=== PATIENT | female | born 1985 | race Caucasian/White ===

== ENCOUNTER 2020-10-04 15:56 | Inpatient (IN) ==
--- NOTE | 2020-10-04 19:20 | Emergency Department Note ---
History of Present Illness General Chief Complaint: Flank Pain Stated Complaint: SEVERE L SIDE&LEG PAIN, POSSIBLE INFECTION Time Seen by Provider: 10/04/20 19:17 Source: patient Mode of arrival: ambulatory Limitations: no limitations History of Present Illness Provider Complaint: flank pain Onset (ago): 1 day(s) Pain Consistency: constant Location: L flank Radiation: other (Left leg) Migration to: no migration Severity: moderate Maximum Pain Intensity: 7 Quality: + sharp Relieved By: + nothing Exacerbated By: + movement Context: no foreign travel, no possible food poisoning, no sick contacts, no recent antibiotic use, no recent surgery/procedure, no recent injury or no history of similar episodes Associated Symptoms: + nausea; no vomiting, no diarrhea, no fever, no constipation, no dysuria, no hematochezia, no hematuria and no weakness Treatments prior to arrival: none Home Medications Medication Instructions Recorded Confirmed Type vit no.95-ferrous 1 tab PO DAILY 05/02/20 10/04/20 History fumarate 28 mg-folic acid 800 mcg tablet () Allergies Allergy/AdvReac Type Severity Reaction Status Date / Time papaya Allergy Intermediate RASH FROM Verified 10/04/20 19:54 PAPAYA FACIAL MASK [place] And Derivatives Allergy Mild SEE COMMENT Verified 10/04/20 19:54 Past Med/Surg History Medical History Asthma Fibromyalgia Surgical History No pertinent past surgical history Family History Other Diabetes Social History Smoking Status: Never smoker Preferred Language: Ethiopian Feels Safe at Home: Yes Review of Systems See HPI for pertinent positives & negatives. and A total of 10 systems reviewed and were otherwise negative Physical Exam Vital Signs: Vital Signs - 24 hr 10/04/20 16:29 10/04/20 19:41 10/04/20 19:42 Temperature 36.8 C Temperature Source Temporal Artery Sc an Pulse Rate 85 Pulse Rate [Apical ] 85 Pulse Rhythm Regular Pulse Rhythm [Apic al] Pulse Strength Normal Pulse Strength [Ap ical] Respiratory Rate 18 18 Respiratory Effort / Characteristics Non-Labored Sponta neous Respiratory Depth Normal Blood Pressure 144/92 H Blood Pressure [Le ft Arm] 117/67 Blood Pressure Mary n 109 Blood Pressure Mary n [Left Arm] 83 Blood Pressure Pos ition [Left Arm] Pulse Oximetry 98 98 98 Oxygen Delivery Me thod Room Air Room Air Room Air Sepsis Recent Feve r Within 48 Hours No Sepsis New/Unexpla ined Change in Men merlin Status No Sepsis Action Take n by Nursing No Action Required 10/04/20 21:00 10/04/20 22:22 10/05/20 00:02 Temperature Temperature Source Pulse Rate Pulse Rate [Apical ] 98 H 94 H 105 H Pulse Rhythm Pulse Rhythm [Apic al] Regular Pulse Strength Pulse Strength [Ap ical] Normal Respiratory Rate 18 18 18 Respiratory Effort / Characteristics Non-Labored Non-Labored Sponta neous Respiratory Depth Normal Normal Blood Pressure Blood Pressure [Le ft Arm] 132/75 135/84 128/72 Blood Pressure Mary n Blood Pressure Mary n [Left Arm] 94 101 90 Blood Pressure Pos ition [Left Arm] Lying Pulse Oximetry 97 100 96 Oxygen Delivery Me thod Room Air Room Air Room Air Sepsis Recent Feve r Within 48 Hours Sepsis New/Unexpla ined Change in Men merlin Status Sepsis Action Take n by Nursing Physical Exam: GENERAL: Wearing glasses and a mask NAD, non-toxic. EYE EXAM: Normal conjunctiva. PERRL, no anisocoria and EOM's grossly intact w/o pain. NECK: Supple, no nuchal rigidity, no adenopathy, non-tender. No signs of meningismus. LUNGS: Clear to auscultation. Normal chest wall mechanics. HEART: NSR, no MRG. ABDOMEN: Abdomen soft, gravid abdomen approximate 5 cm above the umbilicus. Normo-active bowel sounds, no masses, no rebound or guarding. BACK: Left-sided CVA TTP. SKIN: No rashes and no bruising. UPPER EXTREMITIES: Upper extremities are grossly normal. LOWER EXTREMITIES: Mild pain to the left ankle without any obvious deformity or swelling. Compartments are soft. NEURO EXAM: A&O x3, cranial nerves II-XII grossly intact, normal speech, moves all 4 extremities on command w/o issue. Course Course Cardiac monitoring: An order was placed for continuous cardiac monitoring. The monitor shows a rate of 85 with sinus rhythm. Administered Medications Gentamicin Sulfate 520 mg/ (Dextrose) 113 mls @ 100 mls/hr IV Q24H [facility]; Protocol Stop: 10/07/20 00:00 Last Admin: 10/04/20 23:59 Dose: 100 mls/hr Documented by: [id number] Discontinued Medications Acetaminophen (Acetaminophen 500 Mg Tab) 1,000 mg PO NOW STA Stop: 10/04/20 19:30 Last Admin: 10/04/20 19:43 Dose: 1,000 mg Documented by: [id number] Sodium Chloride (Nss 1000ml) 1,000 mls @ 999 mls/hr IV .Q1H1M ONE Stop: 10/04/20 20:29 Last Infusion: 10/04/20 20:43 Dose: 0 mls/hr Documented by: [id number] Admin: 10/04/20 19:43 Dose: 999 mls/hr Documented by: [id number] Ceftriaxone Sodium (Rocephin) 2,000 mg in 70 mls @ 140 mls/hr IV NOW STA Stop: 10/04/20 21:07 Last Infusion: 10/04/20 21:32 Dose: 0 mls/hr Documented by: [id number] Admin: 10/04/20 21:05 Dose: 140 mls/hr Documented by: [id number] Morphine Sulfate (Morphine Sulfate 4 Mg/Ml 1 Ml Carp\Vial) 4 mg IV NOW STA Stop: 10/04/20 22:01 Last Admin: 10/04/20 22:21 Dose: 4 mg Documented by: [id number] Medical Decision Making Differential Diagnosis Renal colic, UTI, appendicitis, diverticulitis, mesenteric ischemia, aortic pathology, infections, inflammatory bowel disease, PUD, biliary pathology, as well as other pathologies. Medical Records Attestation: I reviewed the patient's medical records. Home Medications Current Medication List: was personally reviewed by me Laboratory Data Attestation: I reviewed the patient's lab results. Result diagrams: 10/04/20 19:20 10/04/20 19:20 Lab Results 10/04/20 10/04/20 10/04/20 Range/Units 19:20 19:20 19:20 WBC 19.76 H (4.8-10.8) K/uL RBC 4.31 (4.2-5.4) M/uL Hgb 13.8 (12.0-16.0) g/dL Hct 41.2 (37-47) % MCV 95.6 (80-100) fL MCH 32.0 (25-34) pg MCHC 33.5 (32-36) g/dL RDW Std Deviation 46.3 (36.4-46.3) fL RDW Coeff of Yaneth 13.3 (11.5-14.5) % Plt Count 268 (130-400) K/uL MPV 10.2 (7.4-10.4) fL Immature Gran % (Auto) 0.9 % Neut % (Auto) 89.8 % Lymph % (Auto) 5.2 % [place] % (Auto) 4.0 % Eos % (Auto) 0.0 % Baso % (Auto) 0.1 % Neut # (Auto) 17.75 H (1.4-6.5) K/uL Lymph # (Auto) 1.03 L (1.2-3.4) K/uL [place] # (Auto) 0.80 H (0.11-0.59) K/uL Eos # (Auto) 0.00 (0-0.5) K/uL Baso # (Auto) 0.01 (0-0.2) K/uL Immature Gran # (Auto) 0.17 H (0.00-0.02) K/uL Sodium 137 (136-145) mmol/L Potassium 4.0 (3.5-5.1) mmol/L Chloride 107 (98-107) mmol/L Carbon Dioxide 23 (21-32) mmol/L Anion Gap 8.0 (3-11) BUN 10 (7-18) mg/dl Creatinine 0.85 (0.6-1.2) mg/dl Est Cr Clr Drug Dosing 107.1 ml/min Est GFR ( Amer) 102.9 ml/min Est GFR (Non-Af Amer) 88.8 ml/min BUN/Creatinine Ratio 11.2 (10-20) Glucose 111 H (70-99) mg/dl Calcium 8.7 (8.5-10.1) mg/dl Total Bilirubin 0.3 (0.2-1) mg/dl AST 20 (15-37) U/L ALT 30 (12-78) U/L Alkaline Phosphatase 84 (45-117) U/L Troponin I < 0.015 (0-0.045) ng/ml Total Protein 7.0 (6.4-8.2) gm/dl Albumin 2.8 L (3.4-5.0) gm/dl Globulin 4.2 H (2.5-4.0) gm/dl Albumin/Globulin Ratio 0.7 L (0.9-2) Lipase 151 (73-393) U/L Urine Color Yellow Urine Appearance Cloudy A (Clear) Urine pH 6.0 (4.5-7.5) Ur Specific [place] 1.024 (1.000-1.030) Urine Protein 1+ H (Negative) Urine Glucose (UA) Trace H (Negative) Urine Ketones 3+ H (Negative) Urine Blood Trace H (Negative) Urine Nitrite Negative (Negative) Urine Bilirubin Negative (Negative) Urine Urobilinogen Negative (Negative) Ur Leukocyte Esterase 2+ H (Negative) Urine WBC (Auto) >30 H (0-5) /hpf Urine RBC (Auto) 5-10 H (0-4) /hpf U Hyaline Cast (Auto) 1-5 (0-5) /lpf U Epithel Cells (Auto) >30 H (0-5) /lpf Urine Bacteria (Auto) 2+ H (Negative) COVID-19 Eval Order SARS-CoV-2 (PCR) (Negative) 10/04/20 10/04/20 Range/Units 22:17 22:17 WBC (4.8-10.8) K/uL RBC (4.2-5.4) M/uL Hgb (12.0-16.0) g/dL Hct (37-47) % MCV (80-100) fL MCH (25-34) pg MCHC (32-36) g/dL RDW Std Deviation (36.4-46.3) fL RDW Coeff of Yaneth (11.5-14.5) % Plt Count (130-400) K/uL MPV (7.4-10.4) fL Immature Gran % (Auto) % Neut % (Auto) % Lymph % (Auto) % [place] % (Auto) % Eos % (Auto) % Baso % (Auto) % Neut # (Auto) (1.4-6.5) K/uL Lymph # (Auto) (1.2-3.4) K/uL [place] # (Auto) (0.11-0.59) K/uL Eos # (Auto) (0-0.5) K/uL Baso # (Auto) (0-0.2) K/uL Immature Gran # (Auto) (0.00-0.02) K/uL Sodium (136-145) mmol/L Potassium (3.5-5.1) mmol/L Chloride (98-107) mmol/L Carbon Dioxide (21-32) mmol/L Anion Gap (3-11) BUN (7-18) mg/dl Creatinine (0.6-1.2) mg/dl Est Cr Clr Drug Dosing ml/min Est GFR ( Amer) ml/min Est GFR (Non-Af Amer) ml/min BUN/Creatinine Ratio (10-20) Glucose (70-99) mg/dl Calcium (8.5-10.1) mg/dl Total Bilirubin (0.2-1) mg/dl AST (15-37) U/L ALT (12-78) U/L Alkaline Phosphatase (45-117) U/L Troponin I (0-0.045) ng/ml Total Protein (6.4-8.2) gm/dl Albumin (3.4-5.0) gm/dl Globulin (2.5-4.0) gm/dl Albumin/Globulin Ratio (0.9-2) Lipase (73-393) U/L Urine Color Urine Appearance (Clear) Urine pH (4.5-7.5) Ur Specific [place] (1.000-1.030) Urine Protein (Negative) Urine Glucose (UA) (Negative) Urine Ketones (Negative) Urine Blood (Negative) Urine Nitrite (Negative) Urine Bilirubin (Negative) Urine Urobilinogen (Negative) Ur Leukocyte Esterase (Negative) Urine WBC (Auto) (0-5) /hpf Urine RBC (Auto) (0-4) /hpf U Hyaline Cast (Auto) (0-5) /lpf U Epithel Cells (Auto) (0-5) /lpf Urine Bacteria (Auto) (Negative) COVID-19 Eval Order Covid19 at [facility] SARS-CoV-2 (PCR) NEGATIVE (Negative) Imaging Data Radiologist's Impression: Ankle X-Ray 10/04/20 19:29 XR ankle LT min 3V routine HISTORY: 35 years-old Female ankle pain, fall weeks ago acute left ankle pain status post fall COMPARISON: Left ankle radiographs 07/25/2010 TECHNIQUE: 3 views of the left ankle FINDINGS: Moderate circumferential soft tissue prominence. No acute fracture, dislocation or osteochondral defect. Small plantar enthesophyte of the calcaneus. IMPRESSION: Soft tissue swelling without acute fracture. ACT 112: Negative or not required by law. The above report was generated using voice recognition software. It may contain grammatical, syntax or spelling errors. Electronically signed by: Evens Busch M.D. 10/04/2020 7:40 PM Obstetrics Ultrasound 10/04/20 19:29 US OB limited HISTORY: 35 years-old Female flank/ab pain acute left flank pain with COMPARISON: Renal ultrasound of same day TECHNIQUE: Multiple real-time sonographic images of the deep pelvic structures were obtained transabdominally assessing grayscale appearance, color flow and M-mode analysis FINDINGS: Cervix is suboptimally visualized. No living intrauterine gestation is noted with heart rate measured at 177 bpm. Fetus is in breech positioning. The femur length is measured at 5.14 cm correlating with estimated gestational age of 27 weeks 3 days. Nonspecific mildly heterogeneous appearance of the placenta. IMPRESSION: Single living intrauterine gestation with estimated gestational age of 27 weeks and 3 days. ACT 112: Negative or not required by law. The above report was generated using voice recognition software. It may contain grammatical, syntax or spelling errors. Electronically signed by: Evens Busch M.D. 10/04/2020 8:40 PM Renal Ultrasound 10/04/20 19:29 US renal/blad retro comp HISTORY: 35 years-old Female flank pain . Acute bilateral flank pain with COMPARISON: Pelvic ultrasound of same day TECHNIQUE: Multiple real-time sonographic images of the kidneys and urinary bladder were obtained assessing grayscale appearance and color flow FINDINGS: The right kidney measures 12.5 cm in length and demonstrates no renal calculi or hydronephrosis. Left kidney measures 12.7 cm in length and demonstrates no renal calculi. Mild left-sided hydroureteronephrosis with questioned urothelial thickening. Asymmetric left perinephric fluid on the left is noted. Decompressed urinary bladder. IMPRESSION: 1. Mild asymmetric left-sided hydroureteronephrosis with perinephric stranding. Findings should be correlated with urinalysis. 2. Unremarkable sonographic appearance of the right kidney. 3. Decompressed urinary bladder. ACT 112: Negative or not required by law. The above report was generated using voice recognition software. It may contain grammatical, syntax or spelling errors. Electronically signed by: Evens Busch M.D. 10/04/2020 8:33 PM MDM Narrative Patient was seen due to concern for flank pain. The patient is 29 weeks . Patient did have x-ray of the ankle in addition to the ultrasounds. Patient x- rays negative. Single IUP 27 weeks 3 days. Likely hydroureteronephrosis and perinephric stranding. I believe the patient likely has a pyelonephritis. I did speak with the on-call [employer] physician Dr. Dick and the patient was admitted to the [employer] service. Impression & Plan Pyelonephritis, Flank Pain Discharge Plan Visit Data Chief Complaint: Flank Pain Stated Complaint: SEVERE L SIDE&LEG PAIN, POSSIBLE INFECTION ED Provider: Iain Barone Discharge Problem: Pyelonephritis, Flank Pain Patient Disposition: Admitted As Inpatient Discharge Instructions Interventions: ED Discharge Assessment Last Done: 10/05/20 00:25 Forms Stand Alone Forms: [facility] Prescriptions Prescriptions: No Action PNV cmb#95-ferrous fumarate-FA [] 28 mg iron- 800 mcg Tablet 1 tab PO DAILY RF: 0 Referrals Referrals: Jordyn Marmolejo DO [Primary Care Provider] -
[2020-10-04] MEDS ORDERED: SODIUM CHLORIDE 0.9% 1000ML 1,000 ML IV ONE (19:29)
[2020-10-04] MEDS ORDERED: ACETAMINOPHEN 500 MG TAB PO STA (19:29)
--- NOTE | 2020-10-04 19:42 | XRay Report ---
XR ankle LT min 3V routine HISTORY: 35 years-old Female ankle pain, fall weeks ago acute left ankle pain status post fall COMPARISON: Left ankle radiographs 07/25/2010 TECHNIQUE: 3 views of the left ankle FINDINGS: Moderate circumferential soft tissue prominence. No acute fracture, dislocation or osteochondral defe ct. Small plantar enthesophyte of the calcaneus. IMPRESSION: Soft tissue swelling without acute fracture. ACT 112: Negative or not required by law. The above report was generated using voice recognition software. It may contain grammatical, syntax o r spelling errors. Electronically signed by: Evens Busch M.D. 10/04/2020 7:40 PM
[2020-10-04 19:51] LABS: Basophils # (auto) 0.01 K/uL (0-0.2); Basophils % (auto) 0.1 %; Hematocrit (blood only) 41.2 % (37-47); Hemoglobin 13.8 g/dL (12.0-16.0); Immature Granulocytes # (auto) 0.17 K/uL (0.00-0.02); Immature Granulocytes % (auto) 0.9 %; Lymphocytes # (auto) 1.03 K/uL (1.2-3.4); Lymphocytes % (auto) 5.2 %; Mean Corpuscular Hgb Conc 33.5 g/dL (32-36); Mean Corpuscular Volume 95.6 fL (80-100); Mean Platelet Volume 10.2 fL (7.4-10.4); Neutrophils # (auto) 17.75 K/uL (1.4-6.5); Neutrophils % (auto) 89.8 %; Platelet Count 268 K/uL (130-400); RDW Coefficient of Variation 13.3 % (11.5-14.5); RDW Standard Deviation 46.3 fL (36.4-46.3); Red Blood Count 4.31 M/uL (4.2-5.4); White Blood Count 19.76 K/uL (4.8-10.8)
[2020-10-04 19:55] LABS: Alanine Aminotransferase 30 U/L (12-78); Albumin Level 2.8 gm/dl (3.4-5.0); Aspartate Aminotransferase 20 U/L (15-37); BUN Creatinine Ratio 11.2 (10-20); Blood Urea Nitrogen 10 mg/dl (7-18); Calcium 8.7 mg/dl (8.5-10.1); Carbon Dioxide 23 mmol/L (21-32); Chloride 107 mmol/L (98-107); Creatinine Clr Calc Pharmacy 107.1 ml/min; Est GFR (African American) 102.9 ml/min; Est GFR (Non-African American) 88.8 ml/min; Glucose 111 mg/dl (70-99); Lipase 151 U/L (73-393); Sodium 137 mmol/L (136-145)
[2020-10-04 20:00] LABS: Albumin Globulin Ratio 0.7 (0.9-2); Alkaline Phosphatase 84 U/L (45-117); Bilirubin,Total 0.3 mg/dl (0.2-1); Globulin 4.2 gm/dl (2.5-4.0); Troponin I < 0.015 ng/ml (0-0.045)
[2020-10-04 20:19] LABS: Appearance Urine Cloudy (Clear); Bacteria Urine Automated 2+ (Negative); Bilirubin Urine Negative (Negative); Blood Urine Trace (Negative); Color Urine Yellow; Epithelial Cell Urine Auto >30 /lpf (0-5); Glucose Urine UA Trace (Negative); Ketones Urine 3+ (Negative); Leukocyte Esterase Urine 2+ (Negative); Nitrite Urine Negative (Negative); Protein Urine 1+ (Negative); Specific Gravity Urine 1.024 (1.000-1.030); Urobilinogen Urine Negative (Negative); WBC Urine Automated >30 /hpf (0-5)
--- NOTE | 2020-10-04 20:34 | Ultrasound Report ---
US renal/blad retro comp HISTORY: 35 years-old Female flank pain . Acute bilateral flank pain with COMPARISON: Pelvic ultrasound of same day TECHNIQUE: Multiple real-time sonographic images of the kidneys and urinary bladder were obtained ass essing grayscale appearance and color flow FINDINGS: The right kidney measures 12.5 cm in length and demonstrates no renal calculi or hydronephrosis. Left kidney measures 12.7 cm in length and demonstrates no renal calculi. Mild left-sided hydroureter onephrosis with questioned urothelial thickening. Asymmetric left perinephric fluid on the left is no daphne. Decompressed urinary bladder. IMPRESSION: 1. Mild asymmetric left-sided hydroureteronephrosis with perinephric stranding. Findings should be co rrelated with urinalysis. 2. Unremarkable sonographic appearance of the right kidney. 3. Decompressed urinary bladder. ACT 112: Negative or not required by law. The above report was generated using voice recognition software. It may contain grammatical, syntax o r spelling errors. Electronically signed by: Evens Busch M.D. 10/04/2020 8:33 PM
[2020-10-04] MEDS ORDERED: cefTRIAXone SODIUM 2,000 MG/70 ML BAG IV STA (20:38)
--- NOTE | 2020-10-04 20:41 | Ultrasound Report ---
US OB limited HISTORY: 35 years-old Female flank/ab pain acute left flank pain with COMPARISON: Renal ultrasound of same day TECHNIQUE: Multiple real-time sonographic images of the deep pelvic structures were obtained transabd ominally assessing grayscale appearance, color flow and M-mode analysis FINDINGS: Cervix is suboptimally visualized. No living intrauterine gestation is noted with heart rate me asured at 177 bpm. Fetus is in breech positioning. The femur length is measured at 5.14 cm correlatin g with estimated gestational age of 27 weeks 3 days. Nonspecific mildly heterogeneous appearance of t he placenta. IMPRESSION: Single living intrauterine gestation with estimated gestational age of 27 weeks and 3 day s. ACT 112: Negative or not required by law. The above report was generated using voice recognition software. It may contain grammatical, syntax o r spelling errors. Electronically signed by: Evens Busch M.D. 10/04/2020 8:40 PM
[2020-10-04] MEDS ORDERED: MoRPHine SULFATE 4 MG/ML 1 ML CARP\\VIAL IV STA (22:00)
[2020-10-04] MEDS ORDERED: GENTAMICIN CONSULT ACTIVE PRN (22:18)
[2020-10-04] MEDS ORDERED: HYDROmorphone INJ 1 MG/ML SYRINGE IV PRN (22:24)
[2020-10-04] MEDS ORDERED: oxyCODONE/ACETAMINOPHEN 5mg/325mg TAB PO PRN (22:24)
[2020-10-04] MEDS: DEXTROSE 5% IV SCH (23:59)
[2020-10-04] MEDS: GENTAMICIN SULFATE IV SCH (23:59)
[2020-10-05] MEDS: LACTATED RINGER'S 1,000 ML IV SCH (01:45)
[2020-10-05] MEDS: AMPICILLIN 2,000 MG in 0.9 % SODIUM CHLORIDE 100 ML IV SCH ×4 (01:45→20:15)
[2020-10-05] MEDS: ONDANSETRON INJ 2 MG/ML 2 ML VIAL IV PRN (02:01)
[2020-10-05] MEDS ORDERED: ZOLPIDEM TARTRATE 5 MG TAB PO PRN (02:39)
[2020-10-05] MEDS: ACETAMINOPHEN 325 MG TAB PO PRN ×4 (02:45→23:59)
[2020-10-05 06:29] LABS: Basophils # (auto) 0.01 K/uL (0-0.2); Basophils % (auto) 0.1 %; Hematocrit (blood only) 34.8 % (37-47); Hemoglobin 11.6 g/dL (12.0-16.0); Immature Granulocytes % (auto) 0.5 %; Lymphocytes # (auto) 1.33 K/uL (1.2-3.4); Lymphocytes % (auto) 7.3 %; Mean Corpuscular Hgb Conc 33.3 g/dL (32-36); Mean Corpuscular Volume 96.1 fL (80-100); Monocytes # (auto) 1.09 K/uL (0.11-0.59); Neutrophils # (auto) 15.75 K/uL (1.4-6.5); Neutrophils % (auto) 86.1 %; Platelet Count 231 K/uL (130-400); RDW Coefficient of Variation 13.5 % (11.5-14.5); RDW Standard Deviation 47.1 fL (36.4-46.3); Red Blood Count 3.62 M/uL (4.2-5.4); White Blood Count 18.28 K/uL (4.8-10.8)
[2020-10-05 06:58] LABS: Albumin Level 2.2 gm/dl (3.4-5.0); BUN Creatinine Ratio 7.9 (10-20); Calcium 7.5 mg/dl (8.5-10.1); Creatinine Clr Calc Pharmacy 92.3 ml/min; Est GFR (African American) 86.6 ml/min; Est GFR (Non-African American) 74.7 ml/min; Potassium 3.6 mmol/L (3.5-5.1)
[2020-10-05 07:04] LABS: Albumin Globulin Ratio 0.7 (0.9-2); Bilirubin,Total 0.2 mg/dl (0.2-1); Globulin 3.3 gm/dl (2.5-4.0); Total Protein 5.5 gm/dl (6.4-8.2)
[2020-10-05] MEDS: PRENATAL VITAMIN 1 TAB PO SCH (09:00)
[2020-10-05] MEDS ORDERED: NON-FORMULARY MEDICATION (Pnv Cmb#95-Ferrous Fumarate-Fa [Prenatal] 28 mg iron- 800 mcg Ta PO SCH (09:00)
--- NOTE | 2020-10-05 10:20 | Progress Note ---
Date of Service October 05, 2020 Assessment & Plan Admission and Anticipated Discharge Date Admission Date: October 04, 2020 Subjective still having back pain feeling baby move tolerating diet Review of Systems Review of Systems: All systems reviewed & are unremarkable except as noted in HPI & below Physical Exam Constitutional: WD/WN, vitals as above comfortable Gastrointestinal (Abdomen): normal bowel sounds, soft, nontender, no hepatosplenomegaly Musculoskeletal: minimal pain l flank +CVA tenderness Neurologic: patellar DTR's 2+ bilat, sensation intact Genitourinary: FHT Cat 1 Results & Data ([facility]) Vital Signs (Past 12 Hours) Vital Signs Temp Pulse Resp BP Pulse Ox 10/05/20 08:15 36.7 C 98 H 16 113/69 96 10/05/20 02:15 37.3 C 105 H 16 104/65 95 10/05/20 00:02 105 H 18 128/72 96 10/04/20 22:22 94 H 18 135/84 100 Laboratory Results Laboratory Results - last 72 hr 10/04/20 10/04/20 10/04/20 19:20 19:20 19:20 WBC 19.76 H RBC 4.31 Hgb 13.8 Hct 41.2 MCV 95.6 MCH 32.0 MCHC 33.5 RDW Std Deviation 46.3 RDW Coeff of Yaneth 13.3 Plt Count 268 MPV 10.2 Immature Gran % (Auto) 0.9 Neut % (Auto) 89.8 Lymph % (Auto) 5.2 [place] % (Auto) 4.0 Eos % (Auto) 0.0 Baso % (Auto) 0.1 Neut # (Auto) 17.75 H Lymph # (Auto) 1.03 L [place] # (Auto) 0.80 H Eos # (Auto) 0.00 Baso # (Auto) 0.01 Immature Gran # (Auto) 0.17 H Sodium 137 Potassium 4.0 Chloride 107 Carbon Dioxide 23 Anion Gap 8.0 BUN 10 Creatinine 0.85 Est Cr Clr Drug Dosing 107.1 Est GFR ( Amer) 102.9 Est GFR (Non-Af Amer) 88.8 BUN/Creatinine Ratio 11.2 Glucose 111 H Calcium 8.7 Total Bilirubin 0.3 AST 20 ALT 30 Alkaline Phosphatase 84 Troponin I < 0.015 Total Protein 7.0 Albumin 2.8 L Globulin 4.2 H Albumin/Globulin Ratio 0.7 L Lipase 151 Urine Color Yellow Urine Appearance Cloudy A Urine pH 6.0 Ur Specific [place] 1.024 Urine Protein 1+ H Urine Glucose (UA) Trace H Urine Ketones 3+ H Urine Blood Trace H Urine Nitrite Negative Urine Bilirubin Negative Urine Urobilinogen Negative Ur Leukocyte Esterase 2+ H Urine WBC (Auto) >30 H Urine RBC (Auto) 5-10 H U Hyaline Cast (Auto) 1-5 U Epithel Cells (Auto) >30 H Urine Bacteria (Auto) 2+ H COVID-19 Eval Order SARS-CoV-2 (PCR) 10/04/20 10/04/20 10/05/20 22:17 22:17 06:16 WBC 18.28 H RBC 3.62 L Hgb 11.6 L Hct 34.8 L MCV 96.1 MCH 32.0 MCHC 33.3 RDW Std Deviation 47.1 H RDW Coeff of Yaneth 13.5 Plt Count 231 MPV 10.0 Immature Gran % (Auto) 0.5 Neut % (Auto) 86.1 Lymph % (Auto) 7.3 [place] % (Auto) 6.0 Eos % (Auto) 0.0 Baso % (Auto) 0.1 Neut # (Auto) 15.75 H Lymph # (Auto) 1.33 [place] # (Auto) 1.09 H Eos # (Auto) 0.00 Baso # (Auto) 0.01 Immature Gran # (Auto) 0.10 H Sodium Potassium Chloride Carbon Dioxide Anion Gap BUN Creatinine Est Cr Clr Drug Dosing Est GFR ( Amer) Est GFR (Non-Af Amer) BUN/Creatinine Ratio Glucose Calcium Total Bilirubin AST ALT Alkaline Phosphatase Troponin I Total Protein Albumin Globulin Albumin/Globulin Ratio Lipase Urine Color Urine Appearance Urine pH Ur Specific [place] Urine Protein Urine Glucose (UA) Urine Ketones Urine Blood Urine Nitrite Urine Bilirubin Urine Urobilinogen Ur Leukocyte Esterase Urine WBC (Auto) Urine RBC (Auto) U Hyaline Cast (Auto) U Epithel Cells (Auto) Urine Bacteria (Auto) COVID-19 Eval Order Covid19 at [facility] SARS-CoV-2 (PCR) NEGATIVE 10/05/20 06:16 WBC RBC Hgb Hct MCV MCH MCHC RDW Std Deviation RDW Coeff of Yaneth Plt Count MPV Immature Gran % (Auto) Neut % (Auto) Lymph % (Auto) [place] % (Auto) Eos % (Auto) Baso % (Auto) Neut # (Auto) Lymph # (Auto) [place] # (Auto) Eos # (Auto) Baso # (Auto) Immature Gran # (Auto) Sodium 137 Potassium 3.6 Chloride 107 Carbon Dioxide 22 Anion Gap 8.0 BUN 8 Creatinine 0.98 Est Cr Clr Drug Dosing 92.3 Est GFR ( Amer) 86.6 Est GFR (Non-Af Amer) 74.7 BUN/Creatinine Ratio 7.9 L Glucose 189 H Calcium 7.5 L Total Bilirubin 0.2 AST 18 ALT 22 Alkaline Phosphatase 70 Troponin I Total Protein 5.5 L D Albumin 2.2 L Globulin 3.3 Albumin/Globulin Ratio 0.7 L Lipase Urine Color Urine Appearance Urine pH Ur Specific [place] Urine Protein Urine Glucose (UA) Urine Ketones Urine Blood Urine Nitrite Urine Bilirubin Urine Urobilinogen Ur Leukocyte Esterase Urine WBC (Auto) Urine RBC (Auto) U Hyaline Cast (Auto) U Epithel Cells (Auto) Urine Bacteria (Auto) COVID-19 Eval Order SARS-CoV-2 (PCR)
[2020-10-05] MEDS: cefTRIAXone SODIUM 2,000 MG in DEXTROSE 5% 50 ML IV SCH (21:28)
[2020-10-05] MEDS: DEXTROSE 5% IV SCH (23:59)
[2020-10-05] MEDS: GENTAMICIN SULFATE IV SCH (23:59)
[2020-10-06] MEDS ORDERED: DOCUSATE SODIUM 100 MG CAP PO ONE (00:16)
[2020-10-06] MEDS: AMPICILLIN 2,000 MG in 0.9 % SODIUM CHLORIDE 100 ML IV SCH ×4 (01:54→19:38)
[2020-10-06 06:30] LABS: Basophils # (auto) 0.01 K/uL (0-0.2); Basophils % (auto) 0.1 %; Eosinophils # (auto) 0.01 K/uL (0-0.5); Eosinophils % (auto) 0.1 %; Hematocrit (blood only) 36.3 % (37-47); Hemoglobin 11.8 g/dL (12.0-16.0); Immature Granulocytes % (auto) 0.5 %; Lymphocytes # (auto) 1.43 K/uL (1.2-3.4); Lymphocytes % (auto) 7.6 %; Mean Corpuscular Hemoglobin 31.3 pg (25-34); Mean Corpuscular Hgb Conc 32.5 g/dL (32-36); Mean Corpuscular Volume 96.3 fL (80-100); Mean Platelet Volume 10.1 fL (7.4-10.4); Monocytes # (auto) 1.75 K/uL (0.11-0.59); Monocytes % (auto) 9.3 %; Neutrophils # (auto) 15.42 K/uL (1.4-6.5); Neutrophils % (auto) 82.4 %; Platelet Count 227 K/uL (130-400); RDW Coefficient of Variation 13.9 % (11.5-14.5); RDW Standard Deviation 49.3 fL (36.4-46.3); Red Blood Count 3.77 M/uL (4.2-5.4); White Blood Count 18.72 K/uL (4.8-10.8)
[2020-10-06 07:00] LABS: RBC Morphology Unremarkable
[2020-10-06] MEDS: PRENATAL VITAMIN 1 TAB PO SCH (07:38)
[2020-10-06] MEDS: ACETAMINOPHEN 325 MG TAB PO PRN ×3 (07:39→19:37)
[2020-10-06] MEDS ORDERED: MAGNESIUM HYDROXIDE SUSP 30 ML UDC PO ONE (10:37)
--- NOTE | 2020-10-06 10:43 | Obstetrical Progress Note ---
Date of Service October 06, 2020 Assessment & Plan Admission and Anticipated Discharge Date Admission Date: October 04, 2020 Subjective Patient is seen and examined She feels better, left flank is still sore No ctxs/ LOF/VB/ Fever/ chills/ N&V +FM's She has been constipated but able to eat normal diet VSS Afebrile Abd: soft, NT, Gravid, left flank is tender FHR 156 bpm, NST was reactive for GA Lab Results 10/04/20 10/04/20 10/04/20 Range/Units 19:20 19:20 19:20 WBC 19.76 H (4.8-10.8) K/uL RBC 4.31 (4.2-5.4) M/uL Hgb 13.8 (12.0-16.0) g/dL Hct 41.2 (37-47) % MCV 95.6 (80-100) fL MCH 32.0 (25-34) pg MCHC 33.5 (32-36) g/dL RDW Std Deviation 46.3 (36.4-46.3) fL RDW Coeff of Yaneth 13.3 (11.5-14.5) % Plt Count 268 (130-400) K/uL MPV 10.2 (7.4-10.4) fL Immature Gran % (Auto) 0.9 % Neut % (Auto) 89.8 % Lymph % (Auto) 5.2 % [place] % (Auto) 4.0 % Eos % (Auto) 0.0 % Baso % (Auto) 0.1 % Neut # (Auto) 17.75 H (1.4-6.5) K/uL Lymph # (Auto) 1.03 L (1.2-3.4) K/uL [place] # (Auto) 0.80 H (0.11-0.59) K/uL Eos # (Auto) 0.00 (0-0.5) K/uL Baso # (Auto) 0.01 (0-0.2) K/uL Immature Gran # (Auto) 0.17 H (0.00-0.02) K/uL RBC Morphology Sodium 137 (136-145) mmol/L Potassium 4.0 (3.5-5.1) mmol/L Chloride 107 (98-107) mmol/L Carbon Dioxide 23 (21-32) mmol/L Anion Gap 8.0 (3-11) BUN 10 (7-18) mg/dl Creatinine 0.85 (0.6-1.2) mg/dl Est Cr Clr Drug Dosing 107.1 ml/min Est GFR ( Amer) 102.9 ml/min Est GFR (Non-Af Amer) 88.8 ml/min BUN/Creatinine Ratio 11.2 (10-20) Glucose 111 H (70-99) mg/dl Calcium 8.7 (8.5-10.1) mg/dl Total Bilirubin 0.3 (0.2-1) mg/dl AST 20 (15-37) U/L ALT 30 (12-78) U/L Alkaline Phosphatase 84 (45-117) U/L Troponin I < 0.015 (0-0.045) ng/ml Total Protein 7.0 (6.4-8.2) gm/dl Albumin 2.8 L (3.4-5.0) gm/dl Globulin 4.2 H (2.5-4.0) gm/dl Albumin/Globulin Ratio 0.7 L (0.9-2) Lipase 151 (73-393) U/L Urine Color Yellow Urine Appearance Cloudy A (Clear) Urine pH 6.0 (4.5-7.5) Ur Specific Mikado 1.024 (1.000-1.030) Urine Protein 1+ H (Negative) Urine Glucose (UA) Trace H (Negative) Urine Ketones 3+ H (Negative) Urine Blood Trace H (Negative) Urine Nitrite Negative (Negative) Urine Bilirubin Negative (Negative) Urine Urobilinogen Negative (Negative) Ur Leukocyte Esterase 2+ H (Negative) Urine WBC (Auto) >30 H (0-5) /hpf Urine RBC (Auto) 5-10 H (0-4) /hpf U Hyaline Cast (Auto) 1-5 (0-5) /lpf U Epithel Cells (Auto) >30 H (0-5) /lpf Urine Bacteria (Auto) 2+ H (Negative) COVID-19 Eval Order SARS-CoV-2 (PCR) (Negative) 10/04/20 10/04/20 10/05/20 Range/Units 22:17 22:17 06:16 WBC 18.28 H (4.8-10.8) K/uL RBC 3.62 L (4.2-5.4) M/uL Hgb 11.6 L (12.0-16.0) g/dL Hct 34.8 L (37-47) % MCV 96.1 (80-100) fL MCH 32.0 (25-34) pg MCHC 33.3 (32-36) g/dL RDW Std Deviation 47.1 H (36.4-46.3) fL RDW Coeff of Yaneth 13.5 (11.5-14.5) % Plt Count 231 (130-400) K/uL MPV 10.0 (7.4-10.4) fL Immature Gran % (Auto) 0.5 % Neut % (Auto) 86.1 % Lymph % (Auto) 7.3 % [place] % (Auto) 6.0 % Eos % (Auto) 0.0 % Baso % (Auto) 0.1 % Neut # (Auto) 15.75 H (1.4-6.5) K/uL Lymph # (Auto) 1.33 (1.2-3.4) K/uL [place] # (Auto) 1.09 H (0.11-0.59) K/uL Eos # (Auto) 0.00 (0-0.5) K/uL Baso # (Auto) 0.01 (0-0.2) K/uL Immature Gran # (Auto) 0.10 H (0.00-0.02) K/uL RBC Morphology Sodium (136-145) mmol/L Potassium (3.5-5.1) mmol/L Chloride (98-107) mmol/L Carbon Dioxide (21-32) mmol/L Anion Gap (3-11) BUN (7-18) mg/dl Creatinine (0.6-1.2) mg/dl Est Cr Clr Drug Dosing ml/min Est GFR ( Amer) ml/min Est GFR (Non-Af Amer) ml/min BUN/Creatinine Ratio (10-20) Glucose (70-99) mg/dl Calcium (8.5-10.1) mg/dl Total Bilirubin (0.2-1) mg/dl AST (15-37) U/L ALT (12-78) U/L Alkaline Phosphatase (45-117) U/L Troponin I (0-0.045) ng/ml Total Protein (6.4-8.2) gm/dl Albumin (3.4-5.0) gm/dl Globulin (2.5-4.0) gm/dl Albumin/Globulin Ratio (0.9-2) Lipase (73-393) U/L Urine Color Urine Appearance (Clear) Urine pH (4.5-7.5) Ur Specific Mikado (1.000-1.030) Urine Protein (Negative) Urine Glucose (UA) (Negative) Urine Ketones (Negative) Urine Blood (Negative) Urine Nitrite (Negative) Urine Bilirubin (Negative) Urine Urobilinogen (Negative) Ur Leukocyte Esterase (Negative) Urine WBC (Auto) (0-5) /hpf Urine RBC (Auto) (0-4) /hpf U Hyaline Cast (Auto) (0-5) /lpf U Epithel Cells (Auto) (0-5) /lpf Urine Bacteria (Auto) (Negative) COVID-19 Eval Order Covid19 at [facility] SARS-CoV-2 (PCR) NEGATIVE (Negative) 10/05/20 10/06/20 Range/Units 06:16 06:12 WBC 18.72 H (4.8-10.8) K/uL RBC 3.77 L (4.2-5.4) M/uL Hgb 11.8 L (12.0-16.0) g/dL Hct 36.3 L (37-47) % MCV 96.3 (80-100) fL MCH 31.3 (25-34) pg MCHC 32.5 (32-36) g/dL RDW Std Deviation 49.3 H (36.4-46.3) fL RDW Coeff of Yaneth 13.9 (11.5-14.5) % Plt Count 227 (130-400) K/uL MPV 10.1 (7.4-10.4) fL Immature Gran % (Auto) 0.5 % Neut % (Auto) 82.4 % Lymph % (Auto) 7.6 % [place] % (Auto) 9.3 % Eos % (Auto) 0.1 % Baso % (Auto) 0.1 % Neut # (Auto) 15.42 H (1.4-6.5) K/uL Lymph # (Auto) 1.43 (1.2-3.4) K/uL [place] # (Auto) 1.75 H (0.11-0.59) K/uL Eos # (Auto) 0.01 (0-0.5) K/uL Baso # (Auto) 0.01 (0-0.2) K/uL Immature Gran # (Auto) 0.10 H (0.00-0.02) K/uL RBC Morphology Unremarkable Sodium 137 (136-145) mmol/L Potassium 3.6 (3.5-5.1) mmol/L Chloride 107 (98-107) mmol/L Carbon Dioxide 22 (21-32) mmol/L Anion Gap 8.0 (3-11) BUN 8 (7-18) mg/dl Creatinine 0.98 (0.6-1.2) mg/dl Est Cr Clr Drug Dosing 92.3 ml/min Est GFR ( Amer) 86.6 ml/min Est GFR (Non-Af Amer) 74.7 ml/min BUN/Creatinine Ratio 7.9 L (10-20) Glucose 189 H (70-99) mg/dl Calcium 7.5 L (8.5-10.1) mg/dl Total Bilirubin 0.2 (0.2-1) mg/dl AST 18 (15-37) U/L ALT 22 (12-78) U/L Alkaline Phosphatase 70 (45-117) U/L Troponin I (0-0.045) ng/ml Total Protein 5.5 L D (6.4-8.2) gm/dl Albumin 2.2 L (3.4-5.0) gm/dl Globulin 3.3 (2.5-4.0) gm/dl Albumin/Globulin Ratio 0.7 L (0.9-2) Lipase (73-393) U/L Urine Color Urine Appearance (Clear) Urine pH (4.5-7.5) Ur Specific Mikado (1.000-1.030) Urine Protein (Negative) Urine Glucose (UA) (Negative) Urine Ketones (Negative) Urine Blood (Negative) Urine Nitrite (Negative) Urine Bilirubin (Negative) Urine Urobilinogen (Negative) Ur Leukocyte Esterase (Negative) Urine WBC (Auto) (0-5) /hpf Urine RBC (Auto) (0-4) /hpf U Hyaline Cast (Auto) (0-5) /lpf U Epithel Cells (Auto) (0-5) /lpf Urine Bacteria (Auto) (Negative) COVID-19 Eval Order SARS-CoV-2 (PCR) (Negative) AP: 35 yo at 28.3 wks admitted for left ureteronephrosis, on IV AB VSS Afebrile WBCC still elevated Urine cx is pending Will consult urology MOM for constipation GDM, diagnosed at 11 wks, referred for insulin but has not started, does not have her log for FS's levels Glucose have been elevated per blood work here and now 150 Plan to switch to diabetic diet and consult pharmacy for insulin Continue to monitor Results & Data ([facility]) Vital Signs (Past 12 Hours) Vital Signs Temp Pulse Resp BP Pulse Ox 10/06/20 07:50 37.1 C 94 H 18 126/76 93 10/06/20 03:48 36.7 C 82 16 112/73 95 10/06/20 00:05 37.2 C 97 H 20 119/74 96 10/05/20 23:11 37.3 C 101 H 18 126/77 95
[2020-10-06] MEDS ORDERED: PHARMACY GLYCEMIC MGMT CONSULT PRN (11:13)
[2020-10-06] MEDS ORDERED: GLUCOSE 10 TABS/TUBE PO PRN (11:30)
[2020-10-06] MEDS ORDERED: GLUCAGON FOR INJ 1 MG VIAL IM PRN (11:30)
[2020-10-06] MEDS ORDERED: GLUCOSE 40% GEL 15 GM TUBE PO PRN (11:30)
[2020-10-06] MEDS ORDERED: DEXTROSE 50% 50 ML SYRINGE IV PRN (11:30)
[2020-10-06] MEDS ORDERED: CARBOHYDRATES FOR HYPOGLYCEMIA PO PRN (11:30)
--- NOTE | 2020-10-06 12:18 | Urology Consultation ---
Date of Consultation October 06, 2020 Assessment & Plan (1) Pyelonephritis: (2) Flank Pain: 35yo F who is [id number] admitted with left flank pain and left hydroureteronephrosis in the setting of suspected pyelonephritis. - Plan of care and CT imaging reviewed with Dr. Reynoso, on-call urologist. - She is afebrile, VSS -- Tmax 37.7 on 10/05 @2019. - Labs reviewed -Wbc 18.72 today ( 19.76 on admission) and creatinine 0.98 on labs yesterday. - Renal ultrasound on admission noted mild asymmetric left-sided hydroureteronephrosis with perinephric stranding. - Urine culture from 10/04 with high counts of mixed probable skin jazmin. - Given symptoms and CT findings, this clinically appears to be pyelonephritis. - Recommend treating as pyelonephritis with close monitoring for fever, intractable pain, or nausea, as this will necessitate urgent surgical intervention. - If any acute changes in patient status, would consider stent placement vs. transfer to tertiary center for nephrostomy tube. - Continue supportive care and antibiotic therapy per primary team. - Will continue to follow. History of Present Illness Reason for Consultation: Hydroureteronephrosis Attending Physician: Yaya Dick MD History of Present Illness 35yo F who is [id number] admitted with left flank pain and left hydrou reteronephrosis in the setting of suspected pyelonephritis. Urology consulted for hydroureteronephrosis The patient presented to [facility] on 10/04 with complaints of left flank pain. On presentation, she was afebrile, Wbc 19.76, Hgb 13.8, Cr 0.85. Urinalysis with 2+leuks, >30WBC, 5-10RBC, 2+bacteria, negative nitrite. A renal ultrasound was completed and remarkable for mild asymmetric left-sided hydroureteronephrosis with perinephric stranding. Renal ultrasound IMPRESSION 10/04: 1. Mild asymmetric left-sided hydroureteronephrosis with perinephric stranding. Findings should be correlated with urinalysis. 2. Unremarkable sonographic appearance of the right kidney. 3. Decompressed urinary bladder. Of note, the patient was seen approximately 1 month ago in the ED (08/27/20) for abdominal pain. A CTAP at that time noted a 1 cm left renal calculus and no ureteral calculus and mild bilateral hydroureter/hydronephrosis due to the gravid uterus. Chart review: UC&S final with high counts of mixed probable skin jazmin. On IV Amp, Gent, and Ceftriaxone. Urine output overnight -450ml Patient examined at bedside today. Awake, resting in bed on arrival. She reports intermittent left flank pain, however this has improved since admission. Denies fevers or chills. No nausea or vomiting. Tolerating PO diet. Denies hematuria and dysuria. Some urgency/frequency. Feels she is emptying her bladder without difficulty. Denies prior hx of urological issues. Denies hx of stones. Denies pertinent family hx. Offers no additional complaints at this time. Allergies Allergy/AdvReac Type Severity Reaction Status Date / Time papaya Allergy Intermediate RASH FROM Verified 10/05/20 03:26 PAPAYA FACIAL MASK [place] And Derivatives Allergy Mild SEE COMMENT Verified 10/05/20 03:26 orange Allergy Verified 10/06/20 10:18 orange juice Allergy Verified 10/06/20 10:18 Home Medications Medication Instructions Recorded Confirmed Type vit no.95-ferrous 1 tab PO DAILY 05/02/20 10/05/20 History fumarate 28 mg-folic acid 800 mcg tablet () Patient History Medical History Asthma Fibromyalgia Surgical History No pertinent past surgical history Family History Other Diabetes Social History Smoking Status: Never smoker Hx Alcohol Use: No Hx Substance Use: No Preferred Language: Khmer Beliefs That Will Affect Care: None Current Living Situation: Family and Significant Other Feels Safe at Home: Yes Safety Concerns: Feels Safe At This Time Assistive Devices: None Physical Exam Constitutional: well developed and well nourished; no acute distress Respiratory: normal respiratory effort; no labored breathing and no audible wheezes Cardiovascular: Extremities: no calf tenderness Gastrointestinal (Abdomen): Gravid abdomen Musculoskeletal: Head/Neck/Chest: normocephalic Skin: Warm and dry. No visible rashes or lesions to exposed skin areas. Neurologic: awake Psychiatric: Orientation: alert, oriented x 3 and cooperative Genitourinary: Mild left flank tenderness Results & Data ([facility]) Vital Signs (Past 12 Hours) Vital Signs Temp Pulse Resp BP Pulse Ox 10/06/20 07:50 37.1 C 94 H 18 126/76 93 10/06/20 03:48 36.7 C 82 16 112/73 95 PG Care Time/CCT Total # of Minutes Spent Total Time Spent with Patient: Total time spent is greater than 50% in coordination of care (as documented) at patient's floor/unit and/or counseling patient: Coding Level of Care Code 22701 Inpt Consult Level 3 Diagnoses Pyelonephritis N12 Flank Pain R10.9
[2020-10-06] MEDS: INSULIN ASPART 100 UNITS/ML 3 ML PEN SC SCH ×3 (12:23→21:34)
--- NOTE | 2020-10-06 14:54 | Pharmacy Report ---
Pharmacy Abx/Gly Intl Consult - Date of Service October 06, 2020 - Scope Pharmacy has been consulted by Dr. Loredo to manage Gentamicin dosing and glycemic control for this patient as per the Pharmacy & Therapeutics Committee approved dosing protocols. - Subjective The patient is a 35 year old F admitted on 10/04/20 22:15. - Objective Vital Signs (Past 12hrs): Vital Signs Temp Pulse Resp BP Pulse Ox 10/06/20 07:50 37.1 C 94 H 18 126/76 93 10/06/20 03:48 36.7 C 82 16 112/73 95 Accuchecks BSG (last 24hrs): 10/06/20 10/06/20 10:56 12:14 POC Glucose 150 H 95 Lab Results (24hrs): Laboratory Results - last 24 hr 10/06/20 10/06/20 10/06/20 06:12 10:56 12:14 WBC 18.72 H RBC 3.77 L Hgb 11.8 L Hct 36.3 L MCV 96.3 MCH 31.3 MCHC 32.5 RDW Std Deviation 49.3 H RDW Coeff of Yaneth 13.9 Plt Count 227 MPV 10.1 Immature Gran % (Auto) 0.5 Neut % (Auto) 82.4 Lymph % (Auto) 7.6 [place] % (Auto) 9.3 Eos % (Auto) 0.1 Baso % (Auto) 0.1 Neut # (Auto) 15.42 H Lymph # (Auto) 1.43 [place] # (Auto) 1.75 H Eos # (Auto) 0.01 Baso # (Auto) 0.01 Immature Gran # (Auto) 0.10 H RBC Morphology Unremarkable POC Glucose 150 H 95 Micro Results: 10/04/20 19:20 Urine Culture - Final Urine,Clean Catch More than three types of organisms present, all high counts mixed probable skin jazmin - No further identifications or sensitivities to follow. - Recent Pertinent Medications Recent Pertinent Medications/Risk Factors for Insulin Resist: Outpatient Anti-diabetic Regimen: * none * A1c = unknown. Risk Factors for Insulin Resistance: * Infection: Pyelonephritis * IVF: LR @ 125 ml/hr * Diet: diabetic diet - Plan ANTIMICROBIAL THERAPY Gentamicin * Patient is 28 weeks , admitted for Pylonephritis being treated with Ampicillin, Ceftriaxone and Gentamicin. * Patient meets criteria for extended-interval aminoglycoside dosing per the Urban-Patricio nomogram * A dose of Gentamicin 520 mg (5 mg/kg) IV every 24 hours was started on 10/05/20 per nomogram. * Dosage based on actual body weight. * Random level ordered for tomorrow AM, 10 hours after the start of the infusion to ensure dosing interval is appropriate. INPATIENT GLYCEMIC CONTROL: Patient has been diagnosed with gestational diabetes but had never started ins ulin prior to admission. Will manage patient conservatively with Novolog bolus dosing only for now. If fasting BSGs are high, will plan to add an intermediate acting NPH insulin at bedtime. Basal Insulin * none Bolus Insulin * NovoLog per scale ACHS or Q6hrs while NPO * Goal Range: Low 110 mg/dL - High 140 mg/dL * Correction Factor: 20 mg/dL/unit * Nutritional / Prandial insulin per carb ratio of 1 unit per 10 grams CHO consumed RECOMMENDATIONS FOR DISCHARGE: TBD * Please note that the plan above was derived based on current level of insulin resistance and hospital stress. These recommendations are appropriate for inpatient admission only. Plan of care upon discharge will need to be reassessed to avoid potential outpatient hypo/hyperglycemia. Pharmacy will follow patient and adjust orders on a daily basis. Thank you for allowing us to participate in this patients care.
[2020-10-06] MEDS: ONDANSETRON INJ 2 MG/ML 2 ML VIAL IV PRN (19:37)
[2020-10-06] MEDS: cefTRIAXone SODIUM 2,000 MG in DEXTROSE 5% 50 ML IV SCH (20:38)
[2020-10-07] MEDS: GENTAMICIN SULFATE IV SCH (00:26)
[2020-10-07] MEDS: DEXTROSE 5% IV SCH (00:26)
[2020-10-07] MEDS: AMPICILLIN 2,000 MG in 0.9 % SODIUM CHLORIDE 100 ML IV SCH ×3 (01:42→13:45)
[2020-10-07] MEDS: ACETAMINOPHEN 325 MG TAB PO PRN ×2 (03:21→08:22)
[2020-10-07 06:56] LABS: Basophils # (auto) 0.01 K/uL (0-0.2); Basophils % (auto) 0.1 %; Eosinophils # (auto) 0.01 K/uL (0-0.5); Eosinophils % (auto) 0.1 %; Hematocrit (blood only) 33.6 % (37-47); Hemoglobin 10.9 g/dL (12.0-16.0); Immature Granulocytes % (auto) 0.8 %; Lymphocytes # (auto) 1.21 K/uL (1.2-3.4); Lymphocytes % (auto) 9.2 %; Mean Corpuscular Hemoglobin 31.3 pg (25-34); Mean Corpuscular Hgb Conc 32.4 g/dL (32-36); Mean Corpuscular Volume 96.6 fL (80-100); Mean Platelet Volume 10.2 fL (7.4-10.4); Monocytes # (auto) 1.04 K/uL (0.11-0.59); Monocytes % (auto) 7.9 %; Neutrophils # (auto) 10.73 K/uL (1.4-6.5); Neutrophils % (auto) 81.9 %; Platelet Count 210 K/uL (130-400); RDW Coefficient of Variation 13.7 % (11.5-14.5); RDW Standard Deviation 48.3 fL (36.4-46.3); Red Blood Count 3.48 M/uL (4.2-5.4)
[2020-10-07] MEDS: LACTATED RINGER'S 1,000 ML IV SCH (07:28)
[2020-10-07] MEDS: INSULIN ASPART 100 UNITS/ML 3 ML PEN SC SCH ×2 (07:28→11:34)
[2020-10-07 07:33] LABS: BUN Creatinine Ratio 11.4 (10-20); Calcium 8.2 mg/dl (8.5-10.1); Creatinine Clr Calc Pharmacy 107.7 ml/min; Est GFR (African American) 104.4 ml/min; Potassium 3.3 mmol/L (3.5-5.1)
[2020-10-07 07:36] LABS: Albumin Globulin Ratio 0.6 (0.9-2); Bilirubin,Total 0.3 mg/dl (0.2-1); Globulin 3.5 gm/dl (2.5-4.0); Total Protein 5.5 gm/dl (6.4-8.2)
--- NOTE | 2020-10-07 08:51 | Urology Progress Note ---
Date of Service October 07, 2020 Assessment & Plan (1) Pyelonephritis: (2) Flank Pain: Plan: 35 year-old female who is [id number] admitted with left flank pain and left hydroureteronephrosis in the setting of suspected pyelonephritis. - Patient clinically progressing. - Afebrile over the last 24 hours. - Labs reviewed - white count remains elevated although improving. Creatinine normal. - Renal ultrasound on admission noted mild asymmetric left-sided hyd roureteronephrosis with perinephric stranding. - Urine culture from 10/04 with high counts of mixed probable skin jazmin. - Given symptoms and imaging findings, this clinically appears to be pyelonephr itis. - Recommend treating as pyelonephritis with close monitoring for fever, intractable pain, or nausea, as this will necessitate urgent surgical intervention. - If any acute changes in patient status, would consider stent placement vs. transfer to tertiary center for nephrostomy tube. - Continue supportive care and antibiotic therapy per primary team. - Will continue to follow while inpatient. Admission and Anticipated Discharge Date Admission Date: October 04, 2020 Supervising Physician Co-Signing Physician Notes Given her history of having a stone on Kub in lower pole of left kidney have concern the stone may have migrated into ureter . If patient develops fever or worsening pain would need to have consideration of transfer for percutaneous nephrostomy . Also consider ID input regarding antibiotic treatment as outpatient Subjective Patient examined at bedside. Alert, awake, and comfortable in appearance. Does report she is feeling better overall since admission. Reports minimal intermittent left-flank discomfort. Denies abdominal pain. Denies fevers or chills. Denies nausea or vomiting today. States strong smelling urine. Denies dysuria or hematuria. Reports baby has been active. Ambulating without dizziness/lightheadedness. Chart review: Afebrile Wbc 13.10 (previously 18.72) Creatinine 0.84 Final urine culture more than three types of organisms present, all high counts mixed probable skin jazmin. Currently on IV Ampicillin, Gentamicin, and Ceftriaxone. Denies additional urologic concerns today. Review of Systems Constitutional: as per Subjective / HPI; no fever and no chills Gastrointestinal: as per Subjective / HPI; no nausea and no vomiting Genitourinary: as per Subjective / HPI Physical Exam Constitutional: well developed and well nourished; no acute distress and not ill appearing Respiratory: normal respiratory effort and able to speak in complete sentences; no respiratory distress and no audible wheezes Gastrointestinal (Abdomen): Inspection/Auscultation: abdomen normal to inspection () Percussion/Palpation: abdomen soft; no guarding Psychiatric: Orientation: alert, oriented x 3 and cooperative Affect: euthymic affect Genitourinary: + CVA tenderness (Mild left CVA tenderness.) Results & Data ([facility]) Vital Signs (Past 12 Hours) Vital Signs Temp Pulse Resp BP BP Pulse Ox 10/07/20 07:25 36.8 C 94 H 20 104/66 96 10/07/20 03:20 36.7 C 94 H 16 115/75 96 10/07/20 00:15 36.8 C 92 H 17 104/62 95 10/06/20 23:27 36.9 C 99 H 16 112/70 95 PG Care Time/CCT Total # of Minutes Spent Total Time Spent with Patient: Total time spent is greater than 50% in coordination of care (as documented) at patient's floor/unit and/or counseling patient: Coding Level of Care Code 49714 Subseq Hosp Care Lvl 2 Diagnoses Pyelonephritis N12 Flank Pain R10.9
[2020-10-07] MEDS: POTASSIUM CHLORIDE / WTR 10 MEQ/100 ML PLCT IV SCH ×2 (09:00→11:45)
[2020-10-07] MEDS: ONDANSETRON INJ 2 MG/ML 2 ML VIAL IV PRN (11:38)
--- NOTE | 2020-10-07 14:04 | Pharmacy Report ---
Pharmacy Glycemic Short Note 2 - Date of Service October 07, 2020 - Glycemic Short BSG Results (Last 24 hours): 10/06/20 10/06/20 10/07/20 16:26 21:32 06:16 Glucose 94 POC Glucose 102 H 104 H 10/07/20 10/07/20 07:17 11:30 Glucose POC Glucose 87 106 H OUTPATIENT ANTIDIABETIC REGIMEN: * none ASSESSMENT: * 28 week F with gestational diabetes with no insulin prior to admission. * Patient was started on Novolog bolus insulin yesterday with a correction factor and carb ratio ACHS. * Pt received total 3 units of insulin yesterday with dinner. Fasting BSG was 87 mg/dl today. Post prandial BSGs have been well controlled. * Continued Novolog with current parameters while admitted. No basal insulin needed. PLAN FOR INPATIENT GLYCEMIC CONTROL: * Basal insulin * none * Bolus insulin * NovoLog per scale ACHS or Q6hrs while NPO * Goal Range: Low 110 mg/dL - High 140 mg/dL * Correction Factor: 20 mg/dL/unit * Nutritional / Prandial insulin per carb ratio of 1 unit per 10 grams CHO consumed PLAN FOR DISCHARGE: * Recommend patient follow up with outpatient provider to assess need for insulin and if needed for dosing instructions.
--- NOTE | 2020-10-07 14:06 | Pharmacy Report ---
Pharmacy Abx Dose Short Note - Date of Service October 07, 2020 - Assessment & Plan Assessment 35 year old F receiving Gentamicin 520 mg IV q24h for treatment of complicated UTI. Day #3 of antimicrobial therapy. Gentamicin was started on 10/05/20 based on Urban-raisa extended interval nomogram. A random Gent level was obtained this morning around 10 hrs after last dose of Gentamicin. Laboratory Tests 10/07/20 09:55 Random Gentamicin 3.20 Plan Gentamicin * Random Gent level of 3.2 mcg/mL indicates current dosing interval of Q24h is appropriate * Continue dose of Gentamicin 520 mg (5 mg/kg) IV every 24 hours per Urban-raisa nomogram. * Will re-check random level in around 5 days if patient is still admitted. Pharmacy will continue to follow and will adjust dose/frequency as necessary. Thank you.
--- NOTE | 2020-10-13 15:08 | Discharge Summary (DS) ---
DATE OF ADMISSION: 10/04/2020 DATE OF DISCHARGE: 10/07/2020 REASON FOR ADMISSION AND HOSPITAL COURSE: The patient presented at 28 weeks to the ER on 10/04/2020. She was admitted. She had left flank pain with left hydroureteronephrosis with acute onset of pyel onephritis. Urology consult was obtained. The patient had a CT scan performed. Ultrasound was perf ormed of the kidneys revealing left-sided hydroureter with perinephric stranding. The patient was st arted on IV antibiotics. She did well. The patient was subsequently discharged home on p.o. antibio tics. Regular diet on discharge. Condition on discharge is stable. She will be followed up in the clinic for her OB visit. During e time, she had NSTs, which were category 1 and stable. Homegoing instructions were reviewed with e patient. The patient will follow up in 1 week for OB visit. Job ID: [id number]
== END 2020-10-07 15:30 | disposition home or self-care (01) | DRG 832 ==
LOC: ED 15:56 → 4S2 22:15

== ENCOUNTER 2020-12-19 20:22 | Inpatient (IN) ==
[2020-12-19] MEDS ORDERED: PENICILLIN G POTASSIUM 6 MU in DEXTROSE 5% 250 ML IV STA (20:53)
[2020-12-19] MEDS ORDERED: OXYTOCIN 30 UNITS/500 ML BAG IV PRN (20:53)
[2020-12-19 21:09] LABS: Hematocrit (blood only) 37.2 % (37-47); Hemoglobin 12.6 g/dL (12.0-16.0); Mean Corpuscular Hemoglobin 30.8 pg (25-34); Mean Corpuscular Hgb Conc 33.9 g/dL (32-36); Mean Platelet Volume 10.9 fL (7.4-10.4); Platelet Count 232 K/uL (130-400); RDW Coefficient of Variation 14.6 % (11.5-14.5); RDW Standard Deviation 48.6 fL (36.4-46.3); Red Blood Count 4.09 M/uL (4.2-5.4); White Blood Count 12.76 K/uL (4.8-10.8)
[2020-12-19] MEDS: LACTATED RINGER'S 1,000 ML IV PRN (21:30)
[2020-12-19] MEDS ORDERED: BUPIVACAINE 0.25% 30 ML VIAL ONE (22:37)
[2020-12-19] MEDS ORDERED: ePHEDrine sulfate 50 MG/ML AMP ONE (22:37)
[2020-12-19] MEDS ORDERED: SODIUM CHLORIDE 0.9% INJ 10 ML VIAL ONE (22:37)
[2020-12-19] MEDS ORDERED: fentaNYL citrate 100 MCG/2 ML VIAL ONE (22:38)
[2020-12-19] MEDS ORDERED: fentaNYL 2MCG/ML ROPIVACAINE 1.25MG/ML 100 ML BAG EPI ONE (22:38)
--- NOTE | 2020-12-19 23:17 | Anesthesiology Consultation ---
Date of Service December 19, 2020 Assessment & Plan Chart Review Chart Review: Acceptable Risk for Labor Epidural Consults Requested none History Height/Weight Height: 5 ft 3 in Weight: 106.594 kg Allergies Allergy/AdvReac Type Severity Reaction Status Date / Time papaya Allergy Intermediate RASH FROM Verified 11/03/20 15:00 PAPAYA FACIAL MASK [place] And Derivatives Allergy Mild SEE COMMENT Verified 11/03/20 15:00 orange Allergy Verified 11/03/20 15:00 orange juice Allergy Verified 11/03/20 15:00 Medications Home Medications Medication Instructions Recorded Confirmed Last Taken Lantus U-100 Insulin 12 units SC HS 12/19/20 12/19/20 12/18/20 22:00 albuterol sulfate NEB PRN 12/19/20 Unknown prenat.vits,savage,[id number] 1 tab PO DAILY 12/19/20 12/19/20 12/19/20 08:00 Active Medications Generic Name Dose Route Start Last Admin Trade Name Freq PRN Reason Stop Dose Admin Lactated Ringer's 1,000 mls @ 125 mls/hr 12/19/20 20:53 12/19/20 22:45 Lr IV 12/21/20 20:52 999 mls/hr .Q8H PRN Infusion L&D Protocol Protocol Past Medical History Medical History Asthma Fibromyalgia Past Family History Family History Other Diabetes Past Surgical History Surgical History No pertinent past surgical history Social History Smoking Status: Never smoker Do You Dip or Chew Tobacco: No Hx Alcohol Use: No Hx Substance Use: No substance use type: does not use Physical Exam Vital Signs Last Vital Signs Temp 36.8 C 12/19/20 20:57 Pulse 88 12/19/20 23:15 Resp 18 12/19/20 20:57 BP 138/81 12/19/20 23:14 Pulse Ox 97 12/19/20 23:15 Testing Laboratory Results 12/19/20 21:03 12/19/20 22:45 POC Glucose 114 H
[2020-12-19] MEDS ORDERED: NALOXONE HCL 0.4 MG/1 ML VIAL/CARP IV PRN (23:18)
[2020-12-19] MEDS ORDERED: NALBUPHINE HCL INJ 10 MG/ML AMP IV PRN (23:18)
[2020-12-19] MEDS ORDERED: diphenhydrAMINE 50 MG/ML VIAL IV PRN (23:18)
[2020-12-19] MEDS ORDERED: ePHEDrine sulfate 50 MG/ML AMP IV PRN (23:18)
[2020-12-19] MEDS ORDERED: fentaNYL 2MCG/ML ROPIVACAINE 1.25MG/ML 100 ML BAG EPI PRN (23:18)
[2020-12-19] MEDS ORDERED: NALOXONE HCL 1 MG in SODIUM CHLORIDE 0.9% 1000ML 1,000 ML IV PRN (23:18)
[2020-12-20] MEDS: PENICILLIN G POTASSIUM 3 MU in DEXTROSE 5% 100 ML IV PRN ×2 (01:12→05:15)
--- NOTE | 2020-12-20 03:03 | Labor Progress Brief Note ---
Date of Service December 20, 2020 Assessment & Plan (1) : Plan: Met Pt and spouse earlier doing well AROM - clear at 1900 FHr; CAT1 Ctx 2-3 VE by nurse 4cm + GBS On antibx Epidural analgesia on board Anticipate VD Admission and Anticipated Discharge Date Admission Date: December 19, 2020 Results & Data ([facility]) Vital Signs (Past 12 Hours) Vital Signs Temp Pulse Resp BP Pulse Ox 12/20/20 03:00 64 99 12/20/20 02:55 68 100 12/20/20 02:50 65 100 12/20/20 02:47 67 137/85 12/20/20 02:45 69 100 12/20/20 02:40 69 100 12/20/20 02:35 69 100 12/20/20 02:32 73 137/81 12/20/20 02:30 68 18 99 12/20/20 02:25 66 99 12/20/20 02:20 69 99 12/20/20 02:17 65 146/87 H 12/20/20 02:15 67 100 12/20/20 02:10 73 100 12/20/20 02:05 70 99 12/20/20 02:02 74 149/90 H 12/20/20 02:00 75 100 12/20/20 01:55 70 99 12/20/20 01:50 72 99 12/20/20 01:47 74 136/86 12/20/20 01:45 73 99 12/20/20 01:40 72 99 12/20/20 01:35 76 99 12/20/20 01:32 78 145/83 H 12/20/20 01:30 37.0 C 79 18 99 12/20/20 01:25 77 98 12/20/20 01:20 83 99 12/20/20 01:17 79 148/78 H 12/20/20 01:15 87 98 12/20/20 01:10 85 99 12/20/20 01:05 87 99 12/20/20 01:00 92 H 99 12/20/20 00:55 94 H 98 12/20/20 00:50 93 H 98 12/20/20 00:48 90 131/87 12/20/20 00:45 86 99 12/20/20 00:40 96 H 98 12/20/20 00:35 86 98 12/20/20 00:33 90 141/82 H 12/20/20 00:30 77 18 97 12/20/20 00:25 86 99 12/20/20 00:20 95 H 98 12/20/20 00:18 98 H 142/73 H 12/20/20 00:15 83 98 12/20/20 00:10 92 H 97 12/20/20 00:05 87 98 12/20/20 00:03 85 110/57 L 12/20/20 00:00 94 H 98 12/19/20 23:55 90 97 12/19/20 23:50 88 98 12/19/20 23:48 91 H 117/62 12/19/20 23:45 97 H 97 12/19/20 23:40 106 H 98 12/19/20 23:35 92 H 97 12/19/20 23:34 93 H 128/68 12/19/20 23:30 95 H 18 97 12/19/20 23:25 97 H 97 12/19/20 23:20 95 H 97 12/19/20 23:17 92 H 133/73 12/19/20 23:15 88 97 12/19/20 23:14 82 138/81 12/19/20 23:11 76 131/67 12/19/20 23:10 77 98 12/19/20 23:08 81 145/83 H 12/19/20 23:05 86 99 12/19/20 23:00 36.9 C 84 18 99 12/19/20 22:55 92 H 99 12/19/20 22:50 83 99 12/19/20 22:45 73 96 12/19/20 20:57 36.8 C 18 12/19/20 20:35 91 H 123/76
[2020-12-20] MEDS: LACTATED RINGER'S 1,000 ML IV PRN (03:57)
[2020-12-20] MEDS ORDERED: HYDROCORTISONE ACETATE 25 MG SUPP PR PRN (06:27)
[2020-12-20] MEDS ORDERED: bisacodyL 10 MG SUPP PR PRN (06:27)
[2020-12-20] MEDS ORDERED: DIPHTHERIA/TETANUS/PERTUSSIS 0.5 ML SYR/VIAL IM ONE (06:27)
[2020-12-20] MEDS ORDERED: SUPERCREAM 0.870% 15 GM JAR EXT PRN (06:27)
[2020-12-20] MEDS ORDERED: OXYTOCIN 30 UNITS/500 ML BAG IV PRN (06:27)
[2020-12-20] MEDS ORDERED: IBUPROFEN 600 MG TAB PO PRN (06:27)
[2020-12-20] MEDS ORDERED: miSOPROStoL 200 MCG TAB PR ONE (06:27)
[2020-12-20] MEDS ORDERED: BENZOCAINE 20% AER SPR 82.5 GM CAN EXT PRN (06:27)
[2020-12-20 06:55] LABS: Base Excess Cord Arterial Bld -3.8 mEq/L (-9-1.8); CO2 Cord Arterial Blood 52 mmHg (39.1-73.5); HCO3 Cord Arterial Blood 24 mmol/L (19.7-28.5); PO2 Cord Arterial Blood 19 mmHg (4.1-31.7); pH Cord Arterial Blood 7.27 (7.1-7.38)
[2020-12-20 06:56] LABS: Oxygen Sat Cord Arterial Blood < 60.0 % (<60)
[2020-12-20 06:59] LABS: Base Excess Cord Venous Blood -2.9 mEq/L (-7.7-1.9); Cord Venous Blood HCO3 23 mmol/L (18.4-26.8); Cord Venous Blood PCO2 41 mmHg (30.4-57.2); Cord Venous Blood PO2 25 mmHg (14.1-43.3); Cord Venous Blood pH 7.35 (7.20-7.44); O2 Saturation Cord Venous Bld < 60.0 % (<68)
--- NOTE | 2020-12-20 07:13 | Anesthesia Procedure Note ---
Date of Service December 20, 2020 Anesthesia Post Epidural Note Vital Signs Vital Signs: Temp Pulse Resp BP Pulse Ox 36.7 C 92 H 18 147/68 H 99 12/20/20 06:30 12/20/20 06:59 12/20/20 06:45 12/20/20 06:59 12/20/20 05:55 Notes Mental Status: alert / awake / arousable and participated in evaluation Patient Amnestic to Procedure: Yes Nausea / Vomiting: adequately controlled Pain: adequately controlled Airway Patency, RR, SpO2: stable & adequate BP & HR: stable & adequate Hydration State: stable & adequate Anesthetic Complications: no major complications apparent and Pt Satisfied with anesthetic care
[2020-12-20] MEDS: FERROUS SULFATE 325 MG TAB PO SCH (09:51)
[2020-12-20] MEDS: DOCUSATE SODIUM 100 MG CAP PO SCH ×2 (09:51→20:03)
[2020-12-20] MEDS: PRENATAL VITAMIN 1 TAB PO SCH (09:51)
--- NOTE | 2020-12-20 10:10 | Delivery Summary ---
DATE OF DELIVERY: 12/20/2020. The patient delivered a live infant in right occiput anterior presentation. There was no nuchal cord. was delivered and placed on mother's abdomen. Cord was clamped and cut and handed over to the pediatric team. Terminal meconium was seen. 's weight is pending, Apgars was 8 and 9. Cord blood was obtained as well as a segment of the cord for cord gases. Placenta was spontaneously delivered. Inspection of the perineum showed a first-degree laceration, which was repaired with 2-0 Vicryl in a [id number] manner. There was good hemostasis post-repair. All instruments were removed from the vagina and accounted for x2 including sponges, needles, and retractors. Estimated blood loss was 450 mL. and mother are doing well in recovery. Job ID: [id number] [facility]
[2020-12-20] MEDS: ACETAMINOPHEN 325 MG TAB PO PRN (19:14)
[2020-12-20] MEDS ORDERED: miSOPROStoL 200 MCG TAB ONE (20:26)
[2020-12-21 06:45] LABS: Hematocrit (blood only) 36.8 % (37-47); Hemoglobin 12.1 g/dL (12.0-16.0); Mean Corpuscular Hemoglobin 30.6 pg (25-34); Mean Corpuscular Hgb Conc 32.9 g/dL (32-36); Mean Corpuscular Volume 93.2 fL (80-100); Mean Platelet Volume 10.6 fL (7.4-10.4); Platelet Count 185 K/uL (130-400); RDW Coefficient of Variation 14.9 % (11.5-14.5); RDW Standard Deviation 50.9 fL (36.4-46.3); Red Blood Count 3.95 M/uL (4.2-5.4); White Blood Count 11.38 K/uL (4.8-10.8)
[2020-12-21] MEDS: DOCUSATE SODIUM 100 MG CAP PO SCH (10:27)
[2020-12-21] MEDS: FERROUS SULFATE 325 MG TAB PO SCH (10:27)
[2020-12-21] MEDS: PRENATAL VITAMIN 1 TAB PO SCH (10:27)
[2020-12-21] MEDS: ACETAMINOPHEN 325 MG TAB PO PRN (10:28)
--- NOTE | 2020-12-21 11:01 | Obstetrical Progress Note ---
Date of Service December 21, 2020 Assessment & Plan (1) Normal course: PPD #1 pt doing well anticipate disch this PM or tomorrow Results & Data ([facility]) Vital Signs (Past 12 Hours) Vital Signs Temp Pulse Resp BP 12/21/20 08:00 37.1 C 80 18 118/87 12/21/20 03:12 36.7 C 82 20 126/82 12/20/20 23:20 36.4 C L 76 20 135/78
[2020-12-21] MEDS ORDERED: bisacodyL 5 MG TABEC PO SCH (20:00)
--- NOTE | 2021-01-03 08:55 | Coding Query ---
PATHOLOGY To promote full compliance with coding requirements relating to patient care, physician participation is requested in all cases of firmware engineer uncertainty. Please assist us with the question(s) below: Please review the Pathology report and please document any relevant diagnosis(es) below: Diagnosis(es): no additional dx Thank you Shaye HUANG
== END 2020-12-21 18:10 | disposition home or self-care (01) | DRG 807 ==
LOC: OPB 20:22 → 4S1 20:24 → 4S2 12-20 09:45

== ENCOUNTER 2023-08-28 07:41 | Inpatient (IN) ==
[2023-08-28] MEDS ORDERED: ACETAMINOPHEN 500 MG TAB PO PRN (08:43)
[2023-08-28] MEDS ORDERED: OXYTOCIN 30 UNITS/NSS 30 UNITS/500 ML BAG IV PRN ×2 (08:43→14:26)
[2023-08-28] MEDS ORDERED: CALCIUM CARBONATE 500 MG CHEWABLE TAB PO PRN (08:43)
[2023-08-28] MEDS ORDERED: LIDOCAINE 1% LOCAL 20 ML VIAL INFIL PRN (08:43)
[2023-08-28] MEDS: LACTATED RINGER'S 1,000 ML IV PRN (08:57)
[2023-08-28] MEDS: OXYTOCIN 30 UNITS/NSS 30 UNITS/500 ML BAG IV PRN (08:57)
--- NOTE | 2023-08-28 09:00 | History & Physical Report ---
Date of Service August 28, 2023 Assessment & Plan (1) Gestational diabetes: (2) Elderly multigravida: Plan 38 yo at 40 4/7 wga presents for iol VSS Fetus cat 1 Labor - will start pit GBS neg GDM - will get bg epidural prn Admission and Anticipated Discharge Date Admission Date: August 28, 2023 History of Present Illness Chief Complaint: IOL Primary Care Provider: Jordyn Marmolejo, 38 yo at 40 4/7 wga presents for IOL for a1gdm, psot dates. +FM; denies regular ctx, LOF, VB PNI: A1GDM AMA Past [employer] Hx: G1 2004 G2 2020 G3 current denies hx stis Allergies Allergy/AdvReac Type Severity Reaction Status Date / Time papaya Allergy Intermediate RASH FROM Verified 08/27/23 14:14 PAPAYA FACIAL MASK [place] And Derivatives Allergy Mild SEE COMMENT Verified 08/27/23 14:14 orange Allergy Mild REDDENED Verified 08/27/23 14:14 FACE No Known Drug Allergies Allergy Unknown Verified 08/28/23 08:13 Home Medications Medication Instructions Recorded Confirmed Type albuterol sulfate 90 mcg/actuation 2 puff inhalation Q4H PRN 03/13/21 08/28/23 History aerosol inhaler Shortness Of Breath 21-iron fu-folic acid 1 tab PO DAILY 03/14/23 08/28/23 History [ Complete] acetone (urine) test (Ketone Urine #50 ea 04/10/23 08/27/23 Rx Test strips) blood sugar diagnostic (OneTouch #150 ea 04/10/23 08/27/23 Rx Verio test strips) blood-glucose meter (OneTouch #1 ea 04/10/23 08/27/23 Rx Verio Reflect Meter) lancets 33 gauge (OneTouch Delica #150 ea 04/10/23 08/27/23 Rx Plus Lancet) Patient History Medical History (Updated 08/28/23 @ 08:12 by Johanna Rowell RN) Third degree obstetrical tear Kidney stone Varicella vaccination History of vaginal delivery 04/2004 Umbilical hernia Anxiety Asthma LAST INHALER USE 6 MONTHS AGO Fibromyalgia Surgical History (Updated 03/19/23 @ 09:27 by Keya Kennedy) Status post surgery third degree vaginal tear repair H/O lithotripsy No pertinent past surgical history Family History Mother Diabetes Social History (System 03/19/23 @ 09:27 by Keya Kennedy) Smoking Status: Never smoker Second Hand Exposure: Yes (MOTHER SMOKES); Do You Dip or Chew Tobacco: No; Hx Alcohol Use: No Hx Substance Use: No Preferred Language: Lao Communication Ability: Effective Cyber Intel Planner Required: No Beliefs That Will Affect Care: None marital status: marital status details: Evens Chinchilla (25) [phone] Current Living Situation: Spouse and Family Current Living Situation Comment: lives with spouse, 1 son, dogs, cat-spouse changing litter current occupational status: employed and unemployed current occupation: self employed-[employer] Other Information That Helps Us Care for You: No Feels Safe at Home: Yes Safety Concerns: Feels Safe At This Time Assistive Devices: Glasses Physical Exam Genitourinary: OB Exam Abdomen: + vertex and + estimated weight (8-9) Manual OB Exam: + cervical dilation 4 cm, + cervical effacement 50% and + station -2 OB Exam Monitor Tracing: + external FHT monitor used, + external uterine monitor used (irreg) and + category I (135/mod/+accel/-decel) Results & Data Vital Signs (Past 12 Hours) Vital Signs Temp Pulse Resp BP 08/28/23 07:56 98.6 F 18 08/28/23 07:55 75 121/60 Laboratory Results OB Labs: Blood Type AB Positive 03/14/23 Antibody Screen NEGATIVE 03/14/23 Hemoglobin 13.1 g/dl (12.0-16.0) 06/12/23 Hematocrit 40.4 % (37.0-47.0) 06/12/23 Mean Corpuscular Volume 96.1 fL (80.0-100.0) 03/14/23 Platelet Count 266 K/uL (130-400) 03/14/23 Rubella IgG Antibody Non Immune (Immune) L 03/14/23 Rapid Plasma Reagin Nonreactive (Nonreactive) 03/14/23 Hepatitis B Surface Antigen. NON-REACTIVE (NON-REACTIVE) 03/14/23 Hepatitis C Antibody (EIA) NON-REACTIVE (NON-REACTIVE) 03/14/23 HIV (1&2) Ag and Ab Confirmation NON-REACTIVE (NON-REACTIVE) 03/14/23 Glucose 1 Hour 50 gm Load 173 mg/dl (70-130) H 03/14/23 OB Optional Labs: Chlamydia trachomatis RNA Not Detected (NotDetected) 03/14/23 Neisseria gonorrhoeae RNA Not Detected (NotDetected) 03/14/23 Thyroid Stimulating Hormone (TSH) 3.530 uIu/ml (0.300-4.500) 08/18/18 Labs Reviewed: declines cfdna, carrier screen - sln failed 1 hr gtt x 2 failed 2 hr gtt at 20 weeks. Diagnostic Findings 07/25 EFW 33%, AC 57%, ant plac Coding Level of Care Code None Diagnoses Gestational diabetes O24.419 Elderly multigravida O09.529
[2023-08-28 10:07] LABS: Hematocrit (blood only) 38.5 % (37.0-47.0); Hemoglobin 12.8 g/dl (12.0-16.0); Mean Corpuscular Hemoglobin 31.6 pg (25.0-34.0); Mean Corpuscular Hgb Conc 33.2 g/dL (32.0-36.0); Mean Corpuscular Volume 95.1 fL (80.0-100.0); Mean Platelet Volume 11.4 fL (9.4-12.4); Platelet Count 174 K/uL (130-400); RDW Coefficient of Variation 12.9 % (11.5-14.5); RDW Standard Deviation 44.6 fL (36.4-46.3); Red Blood Count 4.05 M/uL (4.20-5.40); White Blood Count 10.66 K/ul (4.8-10.8)
[2023-08-28] MEDS ORDERED: ePHEDrine sulfate 50 MG/ML AMP ONE (11:03)
[2023-08-28] MEDS ORDERED: SODIUM CHLORIDE 0.9% PF INJ 10 ML VIAL ONE (11:03)
--- NOTE | 2023-08-28 11:14 | Anesthesiology Consultation ---
Date of Service August 28, 2023 Assessment & Plan (1) Encounter for pre-operative examination: Chart Review Chart Review: Acceptable Risk for Labor Epidural History Height/Weight Height: 5 ft 3 in Weight: 102.965 kg Allergies Allergy/AdvReac Type Severity Reaction Status Date / Time papaya Allergy Intermediate RASH FROM Verified 08/27/23 14:14 PAPAYA FACIAL MASK [place] And Derivatives Allergy Mild SEE COMMENT Verified 08/27/23 14:14 orange Allergy Mild REDDENED Verified 08/27/23 14:14 FACE No Known Drug Allergies Allergy Unknown Verified 08/28/23 08:13 Medications Home Medications Medication Instructions Recorded Confirmed Last Taken albuterol sulfate 90 mcg/actuation 2 puff inhalation Q4H PRN 03/13/21 08/28/23 Unknown aerosol inhaler Shortness Of Breath 21-iron fu-folic acid 1 tab PO DAILY 03/14/23 08/28/23 08/27/23 20:00 [ Complete] acetone (urine) test (Ketone Urine #50 ea 04/10/23 08/27/23 Unknown Test strips) blood sugar diagnostic (OneTouch #150 ea 04/10/23 08/27/23 Unknown Verio test strips) blood-glucose meter (OneTouch #1 ea 04/10/23 08/27/23 Unknown Verio Reflect Meter) lancets 33 gauge (OneTouch Delica #150 ea 04/10/23 08/27/23 Unknown Plus Lancet) Active Medications Generic Name Dose Route Start Last Admin Trade Name Freq PRN Reason Stop Dose Admin Oxytocin 30 units in 500 mls @ 10 mls/hr 08/28/23 08:43 08/28/23 11:00 Pitocin 30 Units/Nss IV 08/30/23 08:42 0.6 units/hr .Q24H PRN 10 mls/hr Labor Induction/Augmentation Titration Protocol 0.6 UNITS/HR Lactated Ringer's 1,000 mls @ 125 mls/hr 08/28/23 08:43 08/28/23 11:00 Lr IV 08/30/23 08:42 999 mls/hr .Q8H PRN Infusion L&D Protocol Protocol Past Medical History Medical History Third degree obstetrical tear Kidney stone Varicella vaccination History of vaginal delivery 04/2004 Umbilical hernia Anxiety Asthma LAST INHALER USE 6 MONTHS AGO Fibromyalgia Past Family History Family History Mother Diabetes Grandmother (Maternal) Cancer Mother Diabetes Denies family history of Ovarian cancer Breast cancer Colorectal cancer Past Surgical History Surgical History Status post surgery third degree vaginal tear repair H/O lithotripsy No pertinent past surgical history Social History Smoking Status: Never smoker Do You Dip or Chew Tobacco: No Hx Alcohol Use: No Hx Substance Use: No substance use type: does not use Physical Exam Vital Signs Last Vital Signs Temp 37.0 C 08/28/23 07:56 Pulse 129 H 08/28/23 11:10 Resp 18 08/28/23 07:56 BP 119/79 08/28/23 11:00 Pulse Ox 99 08/28/23 11:10 Testing Laboratory Results 08/28/23 09:38 08/28/23 08:54 POC Glucose 94
[2023-08-28] MEDS: fentANYL 2 MCG/ML BUPIVacaine 0.125%-NSS 100ML BAG ONE (11:33)
[2023-08-28] MEDS: fentaNYL citrate PF 100 MCG/2 ML VIAL ONE (11:42)
[2023-08-28] MEDS: BUPIVACAINE 0.25% PF 30 ML VIAL ONE (11:42)
[2023-08-28] MEDS ORDERED: SODIUM CHLORIDE 0.9% PF INJ 10 ML VIAL EPI STA (11:48)
[2023-08-28] MEDS ORDERED: BUPIVACAINE 0.25% PF 30 ML VIAL EPI PRN (11:48)
[2023-08-28] MEDS ORDERED: LIDOCAINE 2% MPF LOCAL 5 ML VIAL EPI PRN (11:48)
[2023-08-28] MEDS ORDERED: LIDOCAINE 2%/EPINEPHRINE 1:200,000 20 ML PF EPI STA (11:48)
[2023-08-28] MEDS ORDERED: NALOXONE HCL 1 MG in SODIUM CHLORIDE 0.9% 1,000 ML IV PRN (11:48)
[2023-08-28] MEDS ORDERED: ROPIVACAINE 0.5% PF 5 MG/ML 20 ML VIAL EPI PRN (11:48)
[2023-08-28] MEDS ORDERED: BUPIVACAINE 0.25% PF 30 ML VIAL EPI STA (11:48)
[2023-08-28] MEDS ORDERED: fentaNYL citrate PF 100 MCG/2 ML VIAL EPI PRN (11:48)
[2023-08-28] MEDS ORDERED: SODIUM CHLORIDE 0.9% PF INJ 10 ML VIAL EPI PRN (11:48)
[2023-08-28] MEDS ORDERED: fentANYL 2 MCG/ML BUPIVacaine 0.125%-NSS 100ML BAG EPI PRN (11:48)
[2023-08-28] MEDS ORDERED: NALOXONE HCL 0.4 MG/1 ML VIAL/CARP IV PRN (11:48)
[2023-08-28] MEDS ORDERED: ONDANSETRON INJ 2 MG/ML 2 ML VIAL IV PRN (11:48)
[2023-08-28] MEDS ORDERED: ePHEDrine sulfate 50 MG/ML AMP IV PRN (11:48)
[2023-08-28] MEDS ORDERED: fentaNYL citrate PF 100 MCG/2 ML VIAL EPI STA (11:48)
[2023-08-28] MEDS: LIDOCAINE 2%/EPINEPHRINE 1:200,000 20 ML PF ONE (11:51)
--- NOTE | 2023-08-28 12:19 | Labor Progress Brief Note ---
Date of Service August 28, 2023 Subjective comfortable w/ epidural Assessment & Plan (1) Gestational diabetes: (2) Elderly multigravida: Plan 38 yo at 40 4/7 wga presents for iol VSS Fetus cat 1 Labor - pit at 8, now s/p arom GBS neg GDM epidural in place Admission and Anticipated Discharge Date Admission Date: August 28, 2023 Physical Exam Genitourinary: Manual OB Exam: + cervical dilation 5 cm, + cervical effacement 50%, + station -2 and + amniotic fluid (arom clear) clear OB Exam Monitor Tracing: + external FHT monitor used, + external uterine monitor used (q3-5) and + category I (135/mod/+accel/-decel) Results & Data Vital Signs (Past 12 Hours) Vital Signs Temp Pulse Resp BP Pulse Ox 08/28/23 12:15 98 08/28/23 12:15 78 08/28/23 12:14 65 08/28/23 12:14 117/67 08/28/23 12:11 92 H 08/28/23 12:11 121/71 08/28/23 12:10 97 08/28/23 12:10 82 08/28/23 12:06 86 08/28/23 12:06 108/72 08/28/23 12:05 97 08/28/23 12:05 88 08/28/23 12:00 18 08/28/23 12:00 18 08/28/23 12:00 97 08/28/23 12:00 95 H 08/28/23 12:00 90 08/28/23 12:00 125/77 08/28/23 11:55 20 08/28/23 11:55 20 08/28/23 11:55 97 08/28/23 11:55 97 H 08/28/23 11:53 88 08/28/23 11:53 107/62 08/28/23 11:51 86 08/28/23 11:51 114/67 08/28/23 11:50 18 08/28/23 11:50 18 08/28/23 11:50 97 08/28/23 11:50 87 08/28/23 11:49 73 08/28/23 11:49 110/67 08/28/23 11:47 85 08/28/23 11:47 110/65 08/28/23 11:46 71 08/28/23 11:46 114/64 08/28/23 11:45 18 08/28/23 11:45 18 08/28/23 11:45 97 08/28/23 11:45 71 08/28/23 11:43 77 08/28/23 11:43 105/63 08/28/23 11:42 67 08/28/23 11:42 115/66 08/28/23 11:40 18 08/28/23 11:40 18 08/28/23 11:40 99 08/28/23 11:40 72 08/28/23 11:39 61 08/28/23 11:39 123/85 08/28/23 11:37 69 08/28/23 11:37 123/83 08/28/23 11:35 100 08/28/23 11:35 58 L 08/28/23 11:30 20 08/28/23 11:30 20 08/28/23 11:30 100 08/28/23 11:30 54 L 08/28/23 11:25 99 08/28/23 11:25 68 08/28/23 11:20 98 08/28/23 11:20 76 08/28/23 11:15 99 08/28/23 11:15 74 08/28/23 11:10 99 08/28/23 11:10 129 H 08/28/23 11:00 68 08/28/23 11:00 119/79 08/28/23 10:01 73 08/28/23 10:01 125/81 08/28/23 08:57 67 08/28/23 08:57 129/76 08/28/23 07:56 98.6 F 18 08/28/23 07:55 75 121/60 Coding Level of Care Code None Diagnoses Gestational diabetes O24.419 Elderly multigravida O09.529
[2023-08-28] MEDS ORDERED: ALBUTEROL HFA 8 GM INHALER INH PRN (14:26)
[2023-08-28] MEDS ORDERED: DIPHTHER/TETAN/PERTUS Vaccine (Tdap, Adol/Adult) 0.5mL IM ONE (14:26)
[2023-08-28] MEDS ORDERED: BENZOCAINE 20% SPRY 85 APPLN/85 GM CAN EXT PRN (14:26)
[2023-08-28] MEDS ORDERED: ACETAMINOPHEN 325 MG TAB PO PRN (14:26)
[2023-08-28] MEDS ORDERED: HYDROCORTISONE ACETATE 25 MG SUPP PR PRN (14:26)
[2023-08-28] MEDS ORDERED: bisacodyL 10 MG SUPP PR PRN (14:26)
--- NOTE | 2023-08-28 14:26 | Delivery Summary ---
Vaginal Delivery Summary Date of Service August 28, 2023 Vaginal Delivery Summary [facility] PREOPERATIVE DIAGNOSIS: 1. Single intrauterine at 40 4/7 wga 2. A1GDM 3. AMA POSTOPERATIVE DIAGNOSIS: 1. Single intrauterine at 40 4/7 wga 2. A1GDM 3. AMA 4. Delivered PROCEDURE: 1. Normal spontaneous vaginal delivery. SURGEON: Kristen Mccarthy MD ANESTHESIA: Epidural. QUANTITATIVE BLOOD LOSS: 50 mL FLUIDS: Continuous LR. URINE OUTPUT: None. COMPLICATIONS: None. CONDITION: Stable. INDICATIONS: 38 yo at 40 4/7 wga presented for induction of labor. She was 4cm on arrival and started on pitocin. She received an epidural for pain control and underwent arom. She progressed to complete and desired to push FINDINGS: A viable male infant, weight pending with Apgars of 8 and 9 at 1 and 5 minutes respectively. SPECIMEN: Cord blood OPERATIVE REPORT: The patient progressed to 10 cm, 100% effaced and +2 station, pushed over intact perineum with anesthesia to deliver a viable male infant, weight and Apgars as above. Head of delivered in SANJIV position. No nuchal cord was present. Body and shoulders were delivered without difficulty. was delivered to maternal abdomen and nursing staff. Delayed cord clamping was performed for 60 seconds. Cord was clamped and cut. Cord blood was obtained. Placenta delivered spontaneously intact with 3-vessel cord. IV oxytocin and fundal massage were given for excellent hemostasis. Vagina, cervix, perineum, and placenta were inspected. No lacerations were noted. Sponge and needle counts correct x2. No sponges were left behind. Mother and stable in immediate period. [facility] Vaginal Delivery Charge Vaginal Delivery Codes: 71685 global code for the antepartum, delivery, and post- Delivery Type Details: [facility]
--- NOTE | 2023-08-28 15:04 | Anesthesia Procedure Note ---
Date of Service August 28, 2023 Anesthesia Post Epidural Note Vital Signs Vital Signs: Temp Pulse Resp BP Pulse Ox 36.5 C 55 L 18 135/79 99 08/28/23 14:00 08/28/23 14:50 08/28/23 14:35 08/28/23 14:50 08/28/23 14:20 Notes Mental Status: alert / awake / arousable and participated in evaluation Nausea / Vomiting: adequately controlled Pain: adequately controlled Airway Patency, RR, SpO2: stable & adequate BP & HR: stable & adequate Hydration State: stable & adequate Neuraxial Anesthesia: was administered and sensory block is resolving Anesthetic Complications: no major complications apparent Epidural: Removed without complications and With tip intact
[2023-08-28] MEDS: IBUPROFEN 600 MG TAB PO PRN (19:57)
[2023-08-28] MEDS: DOCUSATE SODIUM 100 MG CAP PO SCH (20:12)
--- NOTE | 2023-08-29 06:15 | Obstetrical Progress Note ---
Date of Service <Saeed Rodriguez DO - Last Filed: 08/29/23 06:17> August 29, 2023 Assessment & Plan <Saeed RodriguezDO - Last Filed: 08/29/23 06:17> (1) Encounter for assessment: Plan 38 y/o PPD#1: Eating well, voiding well, ambulating well Vitals reviewed, WNL Pain well controlled with Motrin Routine post care - OOB, ambulation, diet progression as tolerated Will have 6 week follow up with Dr. Mccarthy <Kristen Mccarthy MD - Last Filed: 08/29/23 06:45> (1) Encounter for assessment: Subjective <Saeed Rodriguez DO - Last Filed: 08/29/23 06:17> Ambulation: ambulating normally Voiding: no voiding problems Passing Gas:: Yes Diet Tolerance:: regular diet Lochia:: Small Feeding Type:: breast feeding pain well controlled with Motrin Review of Systems -Denies fever or chills -Denies dyspnea, chest pain, or palpitations -Denies dysuria -Denies headache or changes in vision Physical Exam <Saeed Rodriguez DO - Last Filed: 08/29/23 06:17> General: Alert and oriented. No acute distress Cardiac: Regular rate and rhythm, no murmurs appreciated Respiratory: Lungs clear to auscultation bilaterally, No increased work of breathing Abdominal: Soft, non-tender, non-distended. Bowel sounds present. Uterus: Uterine fundus firm, palpable below umbilicus Extremities: No lower extremity edema, calves non-tender bilaterally Results & Data <Saeed Rodriguez DO - Last Filed: 08/29/23 06:17> Vital Signs (Past 12 Hours) Vital Signs Temp Pulse Resp BP Pulse Ox O2 Del Method 08/29/23 04:10 36.4 C L 63 18 105/69 97 Room Air 08/28/23 22:55 36.7 C 73 18 110/71 97 Room Air 08/28/23 19:21 36.9 C 80 18 108/67 97 Room Air Supervising Physician <Kristen Mccarthy MD - Last Filed: 08/29/23 06:45> Co-Signing Physician Notes Resident Physician Supervision Note: I interviewed and examined the patient. Discussed with Dr. Rodriguez and agree with findings and plan as documented in the note. Any exceptions or clarifications are listed here: PP1 s/p , doing well. VSS, exam benign and wnl. Desires dc at 24 hrs Documented By: Kristen Mccarthy MD Resident Activity Tracking <Saeed Rodriguez, - Last Filed: 08/29/23 06:17> Resident Involvement: Resident Care Provided Care Provided: Adult Hospital Medicine
[2023-08-29] MEDS: PRENATAL VITAMIN 1 TAB PO SCH (08:30)
[2023-08-29] MEDS: FERROUS SULFATE 325 MG TAB PO SCH (08:31)
[2023-08-29] MEDS ORDERED: MEASLES, MUMPS & RUBELLA VIRUS VACCINE (MMR) 0.5ML VIAL ONE (09:19)
[2023-08-29] MEDS: MEASLES, MUMPS & RUBELLA VIRUS VACCINE (MMR) 0.5ML VIAL SQ ONE (09:30)
[2023-08-29] MEDS ORDERED: bisacodyL 5 MG TABEC PO SCH (20:00)
== END 2023-08-29 14:50 | disposition home or self-care (01) | DRG 807 ==
LOC: 4S1 07:41 → 4E2 17:17

== ENCOUNTER 2025-03-04 11:19 | Inpatient (IN) ==
--- NOTE | 2025-03-04 12:22 | History & Physical Report ---
Date of Service March 04, 2025 Assessment & Plan (1) Non-reassuring electronic monitoring tracing: Plan: BPP BPP Amniotic Fluid Volume: 2 Movement: 0 Respirations: 0 Tone: 2 Total Score: 4 above was in office spoke with Dr. Ly [facility] I reviewed the case with him the above biophysical was from approximately 10 in the morning today we will hydrate with IV fluids I will check her labs make sure her sugars are normal and also that her anion gap is not elevated we discussed steroids however they recommended against this considering her diabetic state and how would worsen her blood sugars and potentially the status depending on the nonstress test over the next few hours if this improves we will repeat a biophysical profile 24 hours from the original if this does not improve and stays flat I will repeat a biophysical profile 4 to 6 hours from the original 1 this is all reviewed with the patient carefully and her partner 3 prior vaginal births there is good variability in the tracing as we speak her bedside sugar was 77 approximately she certainly is not in a position to transfer at this stage as we do not have a status that would allow transfer I did review that if the baby was delivered here with diabetes and polyhydramnios that there was a reasonably good chance the baby would have to be transferred out after delivery if this was required I also discussed that sometimes with hydration and monitoring the status will improve and if this does this would obviously be ideal as she is only 34 weeks and 1 day with that being said all options were discussed in depth Update while monitoring over the last few hours there has been minimal acceleration I repeated the biophysical profile after speaking with the copier field service technician the score is 2 out of 8 there is no motion the baby has been still there is adequate fluid there is a positive heart rate but no tone and no breathing movement with a score of 2 out of 8 I recalled [facility] and spoke to Dr. Ly he recommended immediate delivery by and I agree again we will hold steroids because of diabetic status section. The patient was counseled to the nature of the procedure including alternatives such as labor. Risks were discussed including bleeding infection injury to bowel bladder ureter vessels and even baby. Deep Vein thrombosis, pulmonary embolus discussed. Jackelyn akdown of incision reviewed. Deep vein thrombosis pulmonary embolus hernia and failure of the incision to heal were discussed Patient verbalized understanding of this and was given ample time to ask questions History of Present Illness Primary Care Provider: NO PCP SHEY Nicoleulator Estimated Delivery Date Method Current WG Current Estimate 04/14/25 LMP (Certain) 34w 1d Other Estimates 04/10/25 Ultrasound #1 34w 5d LMP: 08/07/24 : 4 Full term: 3 Premature: 0 Total Number of Induced Abortions: 0 Total Number of Spontaneous Abortions: 0 Ectopics: 0 Multiple births: 0 Number of Living Children: 3 and Delivery Plans GDM on insulin *Wkly NSTs @32wks and Twice wkly @36wks *Growth US Q 4wks @ 24wks *Deliver by EDC AMA>40@del *Anatomy Scan @ 20wks * Echo 22-24wks declines to schedule *Growth scan @32wks *Weekly NST's @36 wks *Twice weekly NST @38wks *Weekly GE's @38wks *Deliver by 40 wks Moderate polyhydramnios. Weekly AFIs Weekly NSTs if fluid >12 Delivery between 39 0/7 and 39 6/7 *If pocket >16 refer to MFM Allergies Allergy/AdvReac Type Severity Reaction Status Date / Time papaya Allergy Intermediate RASH FROM Verified 03/04/25 11:35 PAPAYA FACIAL MASK [place] And Derivatives Allergy Mild SEE COMMENT Verified 03/04/25 11:35 orange Allergy Mild REDDENED Verified 03/04/25 11:35 FACE No Known Drug Allergies Allergy Unknown Verified 03/04/25 11:35 avocado Allergy Intermediate Rash Uncoded 03/04/25 11:35 Home Medications Medication Instructions Recorded Confirmed Type albuterol sulfate 90 mcg/actuation 2 puff inhalation Q4H PRN 03/13/21 03/04/25 History aerosol inhaler Shortness Of Breath 21-iron fu-folic acid 1 tab PO DAILY 03/14/23 03/04/25 History [ Complete] acetone (urine) test (Ketone Urine #50 ea 09/26/24 03/04/25 Rx Test strips) blood sugar diagnostic (TorqBakuch #150 ea 09/26/24 03/04/25 Rx Verio test strips) blood-glucose meter #1 ea 09/26/24 03/04/25 Rx lancets 33 gauge (OneTouch Delica #150 ea 09/26/24 03/04/25 Rx Plus Lancet) insulin NPH isoph U-100 human 100 10 unit (0.1 mL) subcut QPM #15 mL 01/22/25 03/04/25 Rx unit/mL (3 mL) subcutaneous pen (Novolin N FlexPen) insulin aspart U-100 100 unit/mL 5 unit (0.05 mL) subcut TID #15 mL 01/22/25 03/04/25 Rx (3 mL) subcutaneous pen (Novolog FlexPen U-100 Insulin aspart) pen needle, diabetic 32 gauge x #150 ea 01/22/25 03/04/25 Rx " Patient History Medical History Seasonal allergies Renal calculus, left History of pyelonephritis during Hydronephrosis, left Left nephrolithiasis Pyelonephritis Third degree obstetrical tear Kidney stone Varicella vaccination History of vaginal delivery Umbilical hernia Anxiety Asthma Fibromyalgia Surgical History Status post surgery H/O lithotripsy Family History Mother Diabetes Grandmother (Maternal) Cancer Mother Diabetes Denies family history of Ovarian cancer Breast cancer Colorectal cancer Social History (Updated 03/04/25 @ 11:35 by Swapna Randall RN) Smoking Status: Never smoker Second Hand Exposure: Yes (MOTHER SMOKES); Do You Dip or Chew Tobacco: No; Hx Alcohol Use: No Hx Substance Use: No Preferred Language: Polish Communication Ability: Effective Bi Architect Required: No Beliefs That Will Affect Care: None marital status: marital status details: Evens Chinchilla [phone] Current Living Situation: Spouse and Family Current Living Situation Comment: lives with spouse, 3 children, dogs, cat- spouse changing litter current occupational status: employed 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 Safety Concerns Comment: unable to ask in private Assistive Devices: None and Glasses Physical Exam Constitutional: WD/WN, vitals as above well developed and well nourished Respiratory: normal respiratory effort, lungs clear to auscultation normal respiratory effort Cardiovascular: RRR, no murmur, no edema Gastrointestinal (Abdomen): normal bowel sounds, soft, nontender, no hepatosplenomegaly Results & Data Vital Signs (Past 12 Hours) Vital Signs Temp Pulse Resp BP 03/04/25 11:33 98.1 F 16 03/04/25 11:31 84 116/71 Coding Level of Care Code None Diagnoses Non-reassuring electronic monitoring tracing [id number]
[2025-03-04] MEDS: LACTATED RINGER'S 1,000 ML IV ONE (12:30)
[2025-03-04 13:02] LABS: Hematocrit (blood only) 38.8 % (37.0-47.0); Hemoglobin 13.2 g/dL (12.0-16.0); Mean Corpuscular Hemoglobin 32.5 pg (25.0-34.0); Mean Corpuscular Volume 95.6 fL (80.0-100.0); Platelet Count 189 K/uL (130-400); RDW Standard Deviation 45.2 fL (36.4-46.3); Red Blood Count 4.06 M/uL (4.20-5.40); White Blood Count 9.52 K/ul (4.8-10.8)
[2025-03-04 13:21] LABS: Alanine Aminotransferase 15.0 U/L (7-52); Albumin Globulin Ratio 1.2 (0.9-2); Albumin Level 3.1 gm/dl (3.4-5.0); Alkaline Phosphatase 117.0 U/L (34-104); Anion Gap 6.0 (3-11); Bilirubin,Total 0.2 mg/dl (0.2-1.0); Blood Urea Nitrogen 12.0 mg/dl (6-23); Calcium 8.2 mg/dl (8.6-10.3); Carbon Dioxide 23.0 mmol/L (21-32); Chloride 107.0 mmol/L (98-107); Creatinine Clr Calc Pharmacy 106.6 ml/min; Globulin 2.6 gm/dl (2.5-4.0); Glucose 96.0 mg/dl (70-99(Fasting)); Potassium 3.9 mmol/L (3.5-5.1); Sodium 136.0 mmol/L (136-145); Total Protein 5.7 gm/dl (6.0-8.3)
[2025-03-04] MEDS: LACTATED RINGER'S 1,000 ML IV SCH ×2 (13:41→16:39)
--- NOTE | 2025-03-04 15:11 | Anesthesiology Consultation ---
Date of Service March 04, 2025 Assessment & Plan Chart Review Chart Review: Acceptable Risk for Surgery Consults Requested none History Surgery Operation Date: 03/04/25 16:00 Proposed Procedures p Section in LD(Bilateral) - Alexis Jorge MD, FACOG Height/Weight Height: 5 ft 3 in Weight: 106.594 kg Allergies Allergy/AdvReac Type Severity Reaction Status Date / Time papaya Allergy Intermediate RASH FROM Verified 03/04/25 11:35 PAPAYA FACIAL MASK [place] And Derivatives Allergy Mild SEE COMMENT Verified 03/04/25 11:35 orange Allergy Mild REDDENED Verified 03/04/25 11:35 FACE No Known Drug Allergies Allergy Unknown Verified 03/04/25 11:35 avocado Allergy Intermediate Rash Uncoded 03/04/25 11:35 Medications Home Medications Medication Instructions Recorded Confirmed Last Taken albuterol sulfate 90 mcg/actuation 2 puff inhalation Q4H PRN 03/13/21 03/04/25 Unknown aerosol inhaler Shortness Of Breath 21-iron fu-folic acid 1 tab PO DAILY 03/14/23 03/04/25 03/03/25 [ Complete] acetone (urine) test (Ketone Urine #50 ea 09/26/24 03/04/25 Unknown Test strips) blood sugar diagnostic (OneTouch #150 ea 09/26/24 03/04/25 Unknown Verio test strips) blood-glucose meter #1 09/26/24 03/04/25 Unknown lancets 33 gauge (OneTouch Delica #150 ea 09/26/24 03/04/25 Unknown Plus Lancet) insulin NPH isoph U-100 human 100 10 unit (0.1 mL) subcut QPM #15 mL 01/22/25 03/04/25 03/02/25 unit/mL (3 mL) subcutaneous pen (Novolin N FlexPen) insulin aspart U-100 100 unit/mL 5 unit (0.05 mL) subcut TID #15 mL 01/22/25 03/04/25 03/04/25 07:00 (3 mL) subcutaneous pen (Novolog FlexPen U-100 Insulin aspart) pen needle, diabetic 32 gauge x #150 ea 01/22/25 03/04/25 Unknown " Active Medications Generic Name Dose Route Start Last Admin Trade Name Freq PRN Reason Stop Dose Admin Lactated Ringer's 1,000 mls @ 125 mls/hr 03/04/25 12:45 03/04/25 14:14 Lr IV 03/07/25 12:44 0 mls/hr .Q8H ELEONORA Infusion Past Medical History Medical History Seasonal allergies Renal calculus, left History of pyelonephritis during Hydronephrosis, left Left nephrolithiasis Pyelonephritis Third degree obstetrical tear Kidney stone Varicella vaccination History of vaginal delivery Umbilical hernia Anxiety Asthma Fibromyalgia Past Family History Family History Mother Diabetes Grandmother (Maternal) Cancer Mother Diabetes Denies family history of Ovarian cancer Breast cancer Colorectal cancer Past Surgical History Surgical History Status post surgery H/O lithotripsy Social History Smoking Status: Never smoker Do You Dip or Chew Tobacco: No Hx Alcohol Use: No Hx Substance Use: No substance use type: does not use Physical Exam Vital Signs Last Vital Signs Temp 36.7 C 03/04/25 11:33 Pulse 84 03/04/25 11:31 Resp 16 03/04/25 11:33 BP 116/71 03/04/25 11:31 Testing Laboratory Results 03/04/25 12:47 03/04/25 12:47 03/04/25 12:23 POC Glucose 77
[2025-03-04] MEDS ORDERED: PHENYLEPHRINE HCL 25 MG/250 ML NSS IV ONE (15:16)
[2025-03-04] MEDS ORDERED: OXYTOCIN 10 UNITS/ML VIAL ONE ×2 (15:20→16:00)
--- NOTE | 2025-03-04 15:20 | Ultrasound Report ---
ULTRASOUND BIOPHYSICAL PROFILE CLINICAL HISTORY: Nonreactive stress test. 34 . COMPARISON STUDY: Obstetrical ultrasound performed the same day 03/04/2025. FINDINGS: Real-time grayscale and color Doppler sonography of the fetus is performed for a biophysica l profile study. There is a single live intrauterine gestation with a heart rate of 161 bpm. The amni otic fluid volume is normal, with the largest pocket measuring 13.3 cm. No tone, movement, or breathi ng motions were seen during the examination. The biophysical profile study score is 2/8. IMPRESSION: 1. There is a single live intrauterine gestation with a heart rate of 161 bpm. 2. The biophysical profile score measures 2/8. No tone, movement, breathing motions were identified. 3. The amniotic fluid volume appears normal. 4. Note that this does not constitute a dedicated anatomic scan. Electronically signed by: Herson Stratton M.D. 03/04/2025 3:19 PM
[2025-03-04] MEDS: CITRIC ACID/SODIUM CITRATE 15 ML UDC PO SCH (15:21)
[2025-03-04] MEDS: ACETAMINOPHEN 500 MG TAB PO SCH (15:21)
[2025-03-04] MEDS ORDERED: ONDANSETRON INJ 2 MG/ML 2 ML VIAL ONE (15:22)
[2025-03-04] MEDS ORDERED: MoRPHine SULFATE PF 1 MG/ML 10 ML AMP/VIAL ONE (15:24)
[2025-03-04] MEDS: ceFAZolin 3000MG 3,000 MG/72.5 ML BAG IV SCH (15:25)
[2025-03-04] MEDS ORDERED: MoRPHine SULFATE 2 MG/ML CARP IV PRN (15:57)
[2025-03-04] MEDS ORDERED: NALOXONE HCL 0.4 MG/1 ML VIAL/CARP IV PRN (15:57)
[2025-03-04] MEDS ORDERED: LACTATED RINGER'S 500 ML IV PRN (15:57)
[2025-03-04] MEDS ORDERED: diphenhydrAMINE 50 MG/ML VIAL IV PRN ×2 (15:57→16:28)
[2025-03-04] MEDS ORDERED: NALOXONE HCL 0.08 MG in SYRINGE 1.8 ML IV PRN (15:57)
[2025-03-04] MEDS ORDERED: NALBUPHINE HCL INJ 10 MG/ML AMP IV PRN (15:57)
[2025-03-04] MEDS ORDERED: HYDROmorphone INJ 0.5 MG/0.5 ML SYR IV PRN (15:57)
[2025-03-04] MEDS ORDERED: NALOXONE HCL 1 MG in SODIUM CHLORIDE 0.9% 1,000 ML IV PRN (15:57)
[2025-03-04] MEDS ORDERED: MEPERIDINE HCL 25 MG/ML CARP/VIAL IV PRN (15:57)
[2025-03-04] MEDS ORDERED: MoRPHine SULFATE PF 1 MG/ML 10 ML AMP/VIAL INT SPINAL ONE (15:57)
[2025-03-04] MEDS ORDERED: PROMETHAZINE 6.25 MG/50.25 ML BAG IV PRN (15:57)
[2025-03-04] MEDS ORDERED: DC INTRASPINAL MORPHINE SCH (16:00)
[2025-03-04] MEDS ORDERED: NO NARCOTICS OR SEDATIVES SCH (16:00)
--- NOTE | 2025-03-04 16:16 | Operative Report ---
Post Operative Report Pre & Post Diagnosis Operation Date: 03/04/25 16:00 Pre-Op Diagnosis: Non Reassuring health testing;34 Weeks;Gestational Diabetes on Insulin Post-Op Diagnosis: Same; Delivery of a live female child on 03/04/25 at 1551 I identified the patient and participated in the time-out.: Yes Procedure Operation Date: 03/04/25 16:00 Low-transverse section Surgeon Alexis Jorge MD, FACOG Cripple Cutter Odilia LAURA Quantitative Blood Loss (QBL) 503 Findings Consistent with Post-Op Diagnosis Specimens Cord blood Cord gases Description of Procedure Regional anesthetic had been given by anesthesia patient was prepped and draped with a leftward tilt preoperative antibiotics had been given in appropriate timing by anesthesiology. Once the prep was allowed to fully dry timeout was performed. Pickups with teeth were used to test the incision area was found to be adequate for incision as the patient did not feel sharp pain. Scalpel was used to make a Pfannenstiel incision on the lower abdomen. We then cut through the subcutaneous fat down to the level of the anterior rectus sheath fascia this was cut in the midline and then extended laterally with the curved Galvez scissors. At this stage we then placed 2 Clive clamps on the anterior aspect of the fascia. Using the curved Galvez's we are able to dissect the fascia superiorly away from the rectus muscles. Care was taken to maintain hemostasis. Clive clamps were then placed to the inferior aspect of the anterior sheath of the fascia. Fascia was then dissected away from the rectus muscles inferiorly towards the pubic bone. A Clive was then placed in the midline both inferiorly and superiorly. This was to allow exposure by retraction rectus muscles were in the midline with were then able to cut through the peritoneum and then enter the peritoneal cavity. Opening was enlarged to allow exposure of the peritoneal cavity both superiorly and inferiorly. Once adequate space was obtained a bladder retractor was placed to expose the lower segment Metzenbaums were used to dissect the bladder flap inferiorly away from the uterus. This was done sharply bladder retractor was then repositioned to expose the lower segment of the uterus Fresh scalpel was used to make a low transverse incision on the uterus. Uterus was then entered bluntly with the operators finger, membranes ruptured and the opening was enlarged using the operators fingers bluntly pulling superiorly and inferiorly to allow exposure. Baby was delivered by first flexion of the head elevation of the head out of the pelvis and then pressure by the assistant laboratory director on the maternal abdomen. Baby's head was then delivered mouth and then nares were suctioned and then using gentle traction the baby was fully delivered. Live vigorous infant. Fluid was clear cord clamped and cut cord gases obtained cord blood obtained baby handed to pediatrics. Placenta removed was removed with traction we ensure the entire placenta was removed with a moist lap sponge into the uterus Uterus was then exteriorized. IV Pitocin had been started by anesthesia tone improved there were no extensions the uterus was then closed using 0 Monocryl in a 2 layer closure the first layer closed in a running locked fashion from left to right and then a second closure from left to right in a running nonlocked fashion. At this stage hemostasis was excellent. Uterus was placed back in the peritoneal cavity with suction irrigation out and inspection of the uterus at this stage revealed excellent hemostasis Retractors were removed urine color was clear at this stage of the case we inspected the rectus muscles they were hemostatic fascia was closed with 0 Vicryl subcutaneous fat was irrigated and closed with 3-0 Vicryl skin closed with 4-0 subcuticular Monocryl Should be noted the baby was in vertex position there was copious amniotic fluid the cord did appear hypercoiled live vigorous female at adnexa and uterus appeared normal I attest to the content of the Intraoperative Record and any orders documented therein. Any exceptions are noted below. OB Procedure Charges 24943
[2025-03-04 16:26] LABS: Base Excess Cord Venous Blood -2.5 mEq/L (-7.7-1.9); Cord Venous Blood PO2 < 20 mmHg (14.1-43.3)
[2025-03-04] MEDS ORDERED: BENZOCAINE 20% SPRY 85 APPLN/85 GM CAN EXT PRN (16:28)
[2025-03-04] MEDS ORDERED: CALCIUM CARBONATE 500 MG CHEWABLE TAB PO PRN (16:28)
[2025-03-04] MEDS ORDERED: MAGNESIUM HYDROXIDE SUSP 30 ML UDC PO PRN (16:28)
[2025-03-04] MEDS ORDERED: diphenhydrAMINE Capsule 25 MG CAP PO PRN (16:28)
[2025-03-04] MEDS ORDERED: HYDROCORTISONE ACETATE 25 MG SUPP PR PRN (16:28)
[2025-03-04] MEDS ORDERED: SENNA 8.6 MG TAB PO PRN (16:28)
[2025-03-04] MEDS ORDERED: ONDANSETRON INJ 2 MG/ML 2 ML VIAL IV PRN (16:28)
[2025-03-04] MEDS: SODIUM CHLORIDE 0.9% 1,000 ML IV SCH (16:40)
[2025-03-04] MEDS: KETOROLAC 30 MG/ML VIAL IV SCH (16:59)
--- NOTE | 2025-03-04 17:38 | Anesthesiology Progress Note ---
Date of Service March 04, 2025 Anesthesia Post Procedure Vital Signs Vital Signs: Temp Pulse Resp BP Pulse Ox 03/04/25 17:35 70 101/55 L 99 03/04/25 17:30 69 99 03/04/25 17:26 78 112/59 L 03/04/25 17:25 78 98 03/04/25 17:20 75 99 03/04/25 17:15 97 03/04/25 17:15 71 03/04/25 17:15 65 109/66 03/04/25 17:14 18 03/04/25 17:10 74 97 03/04/25 17:05 98 03/04/25 17:05 73 03/04/25 17:05 66 114/69 03/04/25 17:04 18 03/04/25 17:00 75 97 03/04/25 16:55 72 111/54 L 97 03/04/25 16:54 18 03/04/25 16:50 72 95 03/04/25 16:45 68 97 03/04/25 16:44 18 03/04/25 16:44 71 115/56 L 03/04/25 16:40 67 98 03/04/25 16:35 81 98 03/04/25 16:34 69 106/56 L 03/04/25 16:30 75 96 03/04/25 16:25 74 97 03/04/25 16:22 71 94 03/04/25 16:21 36.3 C L 18 03/04/25 16:21 67 99/54 L 03/04/25 16:20 71 97 03/04/25 11:33 36.7 C 16 03/04/25 11:31 84 116/71 Transfer of Care Handoff Completed per policy Notes Mental Status: alert / awake / arousable and participated in evaluation Nausea / Vomiting: adequately controlled Pain: adequately controlled Airway Patency, RR, SpO2: stable & adequate BP & HR: stable & adequate Hydration State: stable & adequate Neuraxial Anesthesia: was administered and sensory block is resolving Anesthetic Complications: no major complications apparent and Pt Satisfied with anesthetic care
[2025-03-04] MEDS: OXYTOCIN 20 UNITS/LR 1,002 ML IV SCH (18:45)
[2025-03-04] MEDS: DOCUSATE SODIUM 100 MG CAP PO SCH (21:48)
[2025-03-04] MEDS: ACETAMINOPHEN 325 MG TAB PO SCH (22:24)
[2025-03-04] MEDS: SIMETHICONE 80 MG CHEW PO SCH (22:24)
[2025-03-04] MEDS: ONDANSETRON INJ 2 MG/ML 2 ML VIAL IV PRN (22:30)
[2025-03-05] MEDS: DIPHTHER/TETAN/PERTUS Vaccine (Tdap, Adol/Adult) 0.5mL IM ONE (00:09)
[2025-03-05] MEDS: LACTATED RINGER'S 1,000 ML IV SCH ×2 (00:09→03:52)
[2025-03-05 06:55] LABS: Hematocrit (blood only) 36.8 % (37.0-47.0); Hemoglobin 12.3 g/dL (12.0-16.0); Immature Granulocytes # (auto) 0.09 K/uL (0.01-0.20); Immature Granulocytes % (auto) 0.9 %; Mean Corpuscular Hemoglobin 31.9 pg (25.0-34.0); Mean Corpuscular Volume 95.6 fL (80.0-100.0); Platelet Count 166 K/uL (130-400); RDW Standard Deviation 44.6 fL (36.4-46.3); Red Blood Count 3.85 M/uL (4.20-5.40); White Blood Count 10.14 K/ul (4.8-10.8)
--- NOTE | 2025-03-05 07:49 | Obstetrical Progress Note ---
Date of Service March 05, 2025 Assessment & Plan (1) Polyhydramnios: Postoperative day #1 from section at 34 weeks 1 day due to nonreassuring health testing she is doing well incision is inspected clean dry and intact she has no extremity pain poor urine output we will give her a bolus today and try to hydrate p.o. discussed in depth Subjective Ambulation: ambulating normally Voiding: mcgrath catheter in place Passing Gas:: Yes Diet Tolerance:: clear liquids Lochia:: Small Feeding Type:: breast feeding Physical Exam Constitutional WD/WN, vitals as above well developed and well nourished Respiratory normal respiratory effort, lungs clear to auscultation normal respiratory effort Cardiovascular RRR, no murmur, no edema Gastrointestinal (Abdomen) normal bowel sounds, soft, nontender, no hepatosplenomegaly Results & Data Vital Signs (Past 12 Hours) Vital Signs Temp Pulse Pulse Resp BP Pulse Ox O2 Del Method 03/05/25 03:50 97.7 F 70 18 113/71 95 Room Air 03/05/25 00:38 16 95 03/04/25 23:15 18 97 03/04/25 23:15 Room Air 03/04/25 22:37 16 97 03/04/25 22:34 97.5 F L 64 18 102/64 Room Air 03/04/25 21:58 16 97 03/04/25 20:50 18 98 03/04/25 19:50 18 97 03/04/25 19:50 97.3 F L 66 18 117/73 97 Room Air
[2025-03-05] MEDS ORDERED: PROMETHAZINE 12.5 MG/50.5 ML BAG IV PRN (09:58)
[2025-03-05] MEDS ORDERED: HYDROmorphone INJ 0.5 MG/0.5 ML SYR IV PRN (09:58)
[2025-03-05] MEDS: FERROUS SULFATE 325 MG TAB PO SCH (10:20)
[2025-03-05] MEDS: PRENATAL VITAMIN 1 TAB PO SCH (10:20)
[2025-03-05] MEDS: IBUPROFEN 600 MG TAB PO SCH (16:08)
[2025-03-05] MEDS ORDERED: KETOROLAC 30 MG/ML VIAL IV PRN (16:13)
[2025-03-06 04:12] VITALS: O2SAT 96
[2025-03-06] MEDS ORDERED: Nursing to Pharmacy Communication SCH (06:00)
[2025-03-06 06:55] LABS: Hematocrit (blood only) 37.6 % (37.0-47.0); Hemoglobin 12.7 g/dL (12.0-16.0)
--- NOTE | 2025-03-06 07:46 | Obstetrical Progress Note ---
Date of Service March 06, 2025 Assessment & Plan (1) Insulin controlled gestational diabetes mellitus (GDM) during : POD2 doing well, might want to go home today. Rx sent. Subjective Ambulation: ambulating normally Voiding: no voiding problems Diet Tolerance:: regular diet Lochia:: Moderate Review of Systems All systems reviewed & are unremarkable except as noted in HPI & below Physical Exam Constitutional WD/WN, vitals as above no acute distress Respiratory normal respiratory effort Cardiovascular Rate/Rhythm: regular rate and regular rhythm Gastrointestinal (Abdomen) Inspection/Auscultation: abdomen normal to inspection; abdomen not distended Percussion/Palpation: abdomen soft Genitourinary OB Exam Abdomen: + fundal height Fundus: + firm; not tender Results & Data Vital Signs (Past 12 Hours) Vital Signs Temp Pulse Resp BP Pulse Ox O2 Del Method 03/06/25 03:30 36.9 C 68 18 118/75 96 Room Air 03/05/25 20:35 36.8 C 73 18 101/64 97 Room Air
[2025-03-06 08:32] VITALS: RESP 14; TEMP 98.2
[2025-03-06 09:08] VITALS: BP 118/75; PULSE 66
[2025-03-06] MEDS ORDERED: IBUPROFEN 600 MG TAB PO PRN (16:13)
[2025-03-06] MEDS ORDERED: ACETAMINOPHEN 325 MG TAB PO PRN (22:13)
== END 2025-03-06 09:43 | disposition home or self-care (01) | DRG 788 ==
LOC: OPB 11:19 → 4S1 11:23 → 4E2 19:31